=== PATIENT | female | born 1990 | race Caucasian/White ===

== ENCOUNTER → 2020-09-16 | Outpatient (CLI) | payer MEDICAID ==
[~2020-09-16] MED LIST: ATARAX OR; BACTROBAN TOP; MACR50CA OR; REME30TA OR; TRAZ50TA OR; ZOLO50TA OR
--- NOTE | 2020-09-16 11:57 | REP ---
INDICATION: DORSALGIA, UNSPECIFIED COMPARISON: None. TECHNIQUE: AP, lateral, and swimmers views. FINDINGS: Alignment and kyphosis is maintained. Vertebral bodies intact. No acute fracture / compression injury or subluxation. No degenerative changes. Paravertebral soft tissues are normal. IMPRESSION: Normal thoracic spine series. <Electronically signed by Jose Tamayo > 09/16/20 [id number]
--- NOTE | 2020-09-16 11:58 | REP ---
INDICATION: DORSALGIA, UNSPECIFIED COMPARISON: None. TECHNIQUE: AP and lateral views of the lumbosacral spine FINDINGS: Two orthogonal views of the lumbosacral spine demonstrate satisfactory alignment and lordosis without acute fracture / compression injury or subluxation. IMPRESSION: 1. No acute fracture / compression injury or subluxation. <Electronically signed by Jose Tamayo > 09/16/20 [id number]
== END ==
LOC: M LAB 11:01
PROVIDERS: ATTEND Family Medicine Addiction Medicine
DX: M54.9 Dorsalgia, unspecified (principal)

== ENCOUNTER 2020-10-15 14:39 | Emergency (ER) | payer MEDICAID, OTHER ==
[~2020-10-15] VITALS: Ht 157.5 cm; Wt 107.0 kg
[2020-10-15 14:40] VITALS: BP 144/88
[2020-10-15] MEDS ORDERED: PROP20TA72 (14:57)
== END 2020-10-15 16:10 | disposition left against medical advice (07) ==
LOC: M ED 14:39
DX: Z53.21 Procedure and treatment not carried out due to patient leaving prior to being seen by health care provider (principal)

== ENCOUNTER 2021-02-05 12:45 | Emergency (ER) | payer OTHER ==
[~2021-02-05] VITALS: Ht 154.9 cm; Wt 108.2 kg
[~2021-02-05 12:45] MED LIST changes: +PROP20TA72
[2021-02-05] MEDS ORDERED: NS 1,000 ML IV SCH (13:40)
[2021-02-05 14:06] LABS: BASO # 0.1 10^3/uL (0.0-0.2); BASO % 0.6 % (0.0-1.0); EOS # 0.1 10^3/uL (0.0-0.5); EOS % 0.6 % (0.0-3.0); HEMATOCRIT 40.6 % (36.0-47.0); HEMOGLOBIN 13.2 g/dl (12.0-15.5); LYMPH % 29.4 % (24.0-44.0); MEAN CORPUSCULAR HEMOGLOBIN 26.7 pg (27.0-33.0); MEAN CORPUSCULAR HGB CONC 32.5 g/dl (32.0-36.5); MEAN CORPUSCULAR VOLUME 82.2 fl (80.0-96.0); MONO # 0.8 10^3/uL (0.0-0.8); MONO % 8.1 % (2.0-8.0); NEUTROPHILS # 6.2 10^3/uL (1.5-8.5); NEUTROPHILS % 60.8 % (36.0-66.0); PLATELET COUNT, AUTOMATED 297 10^3/uL (150-450); RED BLOOD COUNT 4.94 10^6/uL (4.00-5.40); WHITE BLOOD COUNT 10.2 10^3/uL (4.0-10.0)
[2021-02-05] MEDS ORDERED: LISI10TA22 PO (14:10)
[2021-02-05] MEDS ORDERED: AMOX500C PO (14:10)
[2021-02-05] MEDS ORDERED: LEXA1TAB PO (14:10)
[2021-02-05 14:37] LABS: ALBUMIN 3.5 GM/DL (3.2-5.2); ALT/SGPT 15 U/L (12-78); BILIRUBIN,DIRECT < 0.1 MG/DL (0.0-0.2); BILIRUBIN,TOTAL 0.2 MG/DL (0.2-1.0); BLOOD UREA NITROGEN 16 MG/DL (7-18); CALCIUM LEVEL 8.9 MG/DL (8.5-10.1); CARBON DIOXIDE LEVEL 23 MEQ/L (21-32); CHLORIDE LEVEL 106 MEQ/L (98-107); CK-MB VALUE MASS < 1.0 NG/ML (<3.6); CPK CREATINE PHOSPHOKINASE 67 U/L (26-192); FREE T4 0.77 NG/DL (0.76-1.46); GLOMERULAR FILTRATION RATE > 60.0 (>60); GLUCOSE, FASTING 112 MG/DL (70-100); LIPASE 92 U/L (73-393); MAGNESIUM LEVEL 1.8 MG/DL (1.8-2.4); MB/CK RELATIVE INDEX 1.49 (< OR =4); POTASSIUM SERUM 4.1 MEQ/L (3.5-5.1); SODIUM LEVEL 138 MEQ/L (136-145); TOTAL PROTEIN 6.8 GM/DL (6.4-8.2); TROPONIN I < 0.02 NG/ML (< 0.10)
[2021-02-05 14:49] LABS: HCG, SERUM QUALITATIVE NEGATIVE (NEGATIVE)
[2021-02-05] MEDS ORDERED: ISOVUE-370 76% 100ML VIAL As Ordered ONE (15:05)
--- NOTE | 2021-02-05 16:07 | REP ---
INDICATION: sob, syncope. COMPARISON: None. TECHNIQUE: CT angiogram chest performed following the intravenous administration of 100 cc of Isovue 370. Sagittal and coronal reconstruction images are performed. FINDINGS: Lungs: Clear, no infiltrate or nodule. Mediastinum: No adenopathy. Pulmonary arteries: No evidence of pulmonary embolism. Aretha: No adenopathy. Axilla: No adenopathy. Pleura: No effusion. Heart: Not enlarged. Thoracic aorta: No aneurysm or dissection. Upper abdominal structures: Unremarkable. Visualized osseous structures: Unremarkable. IMPRESSION: No CT evidence of pulmonary embolism. No infiltrate seen. <Electronically signed by Dung Soria > 02/05/21 [id number]
--- NOTE | 2021-02-05 16:12 | REP ---
INDICATION: LUQ pain, syncope COMPARISON: None. TECHNIQUE: CT Scan of the abdomen and pelvis was performed with intravenous administration of 100 cc of Isovue 370, without oral contrast. Sagittal and coronal reconstruction images are performed. FINDINGS: Lung bases: Unremarkable. Liver: Normal Gallbladder: Unremarkable. Spleen: Normal. Adrenals: Normal. Pancreas: Normal. Kidneys: Normal. Small and large bowel: Unremarkable. Free fluid: Trace free fluid in the pelvis is likely physiologic in nature. Abdominal aorta: No aneurysm or dissection. Adenopathy: None. Appendix: Not inflamed. Osseous structures: Unremarkable. Pelvis: No mass. IMPRESSION: Negative CT abdomen and pelvis. <Electronically signed by Dung Soria > 02/05/21 [id number]
[2021-02-05 16:45] VITALS: BP 144/85
--- NOTE | 2021-02-06 19:56 | ECGEPIP ---
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
== END 2021-02-05 17:06 | disposition home or self-care (01) ==
LOC: M ED 12:45
DX: R55 Syncope and collapse (principal); R19.7 Diarrhea, unspecified; I10 Essential (primary) hypertension; F31.9 Bipolar disorder, unspecified; Z79.899 Other long term (current) drug therapy; Z88.8 Allergy status to other drugs, medicaments and biological substances
CPT/HCPCS: 71275; 74177; 80048; 80076; 82550; 82553; 83690; 83735; 84439; 84443; 84703; 85025; 93005; 93041; 94760; 96360; 96361; 99285; Q9967; U0003

== ENCOUNTER 2021-03-15 22:07 | Emergency (ER) | payer OTHER ==
[~2021-03-15] VITALS: Ht 154.9 cm; Wt 109.6 kg
[~2021-03-15 22:07] MED LIST changes: +AMOX500C PO; +LEXA1TAB PO; +LISI10TA22 PO
--- OUTSIDE RECORDS SUMMARY | 2021-03-15 22:16 | CCD ---
Author Organization Unknown Address [address] [place] [address] Phone [phone] Care Team Providers [employer] Operator Name Role Phone Dustin Garcia Unavailable Unavailable Allergies Code Code System Name Reaction Severity Status Onset NKDA Medications Name Status Start Date Stop Date escitalopram 10 mg tablet Take 1 tablet every day by oral route. Active Not available hydroxyzine HCl 10 mg tablet TAKE ONE TABLET BY MOUTH THREE TIMES A DAY NEEDED Active Not available ibuprofen 400 mg tablet TAKE ONE TABLET BY MOUTH THREE TIMES A DAY Completed 12/15/2020 lisinopril 10 mg tablet TAKE ONE TABLET BY MOUTH EVERY EVENING Active Not available propranolol 20 mg tablet TAKE ONE HALF TABLET BY MOUTH TWO TIMES A DAY Completed 12/31/2020 Problems Name Status Onset Date Source Essential Hypertension Active 09/15/2020 Chronic Back Pain Active 09/15/2020 Atypical Chest Pain Active 09/16/2020 Morbid Obesity Active 12/31/2020 Generalized Anxiety Disorder Active 12/31/2020 Notes: wants to talk about weight gain, anxiety attacks, and BP meds Procedures Date Name Performed by 09/15/2020 XR, Thoracic Spine, 3 View Information n ot available 09/15/2020 XR, Lumbosacral Spine, 2 or 3 View Infor mation not available 09/16/2020 Electrocardiogram [facility] [address] [facility] [address] [place] [address] (Work Place) Results Lab Results Date Name Specimen Result Interpretation Description Value Range Status Address 09/15/2020 Test, Urine Urine Hcg negative [facility]: [address] [facility] [address], [place] 08/18/2020 SARS CoV 2 RdRp Gene, QL Probe, Respiratory Spec imen Nasopharyngeal Normal Sars-cov-2 negative negative Final [facility]: [address] [facility] Past Encounters 12/15/2020 Essential Hypertension; Generalized Anxiety Disorder; Chronic Back Pain; Morbid Obesity Noel Kruse, RPA-C: [address] [facility] [address], [place] [address], Ph. 09/15/2020 Chronic Back Pain; Essential Hypertension; Atypical Chest Pain Dustin Garcia MD: [address] [facility], [facility] [address], [place] [address], Ph. 08/18/2020 Exposure to SARS-CoV-2 Jaimie Hermosillo PA-C: [address] [place] [address], Ph. Social History Tobacco Smoking Status Heavy Tobacco Smoker (1/2 pack per a day) Vaccine List None recorded. Plan of Care Reminders Provider Appointments None recorded. Lab None recorded. Referral None recorded. Procedures None recorded. Surgeries None recorded. Imaging None recorded. Vitals 12/15/2020 12:00PM ESTABLISHED [id number] Height Weight BMI Blood Pressure 62 in 239 lbs 8 oz 43.8 kg/m2 128/86 mm[Hg] 09/15/2020 02:20PM NEW PATIENT (13yrs - OLDER) Height Weight BMI Blood Pressure 62 in 225 lbs 6 oz 41.2 kg/m2 120/84 mm[Hg]
--- OUTSIDE RECORDS SUMMARY | 2021-03-15 22:16 | CCD ---
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 Role Phone Maring, Capo PA Unavailable Unavailable Maring, Capo PA Unavailable Unavailable Maring, Capo PA Unavailable Unavailable Maring, Capo PA Unavailable Unavailable Maring, Capo PA Unavailable Unavailable Maring, Capo PA Unavailable Unavailable Maring, Capo PA Unavailable Unavailable Maring, Capo PA Unavailable Unavailable Maring, Capo PA Unavailable Unavailable Maring, Capo PA Unavailable Unavailable Maring, Capo PA Unavailable Unavailable Maring, Capo PA Unavailable Unavailable Maring, Capo PA Unavailable Unavailable Maring, Capo PA Unavailable Unavailable Maring, Capo PA Unavailable Unavailable Maring, Capo PA Unavailable Unavailable Elías Garcia MD Unavailable Unavailable Elías Garcia MD Unavailable Unavailable Elías Garcia MD Unavailable Unavailable Elías Garcia MD Unavailable Unavailable Elías Garcia MD Unavailable Unavailable Elías Garcia MD Unavailable Unavailable Elías Garcia MD Unavailable Unavailable Elías Garcia MD Unavailable Unavailable Elías Garcia MD Unavailable Unavailable Elías Garcia MD Unavailable Unavailable Elías Garcia MD Unavailable Unavailable Elías Garcia MD Unavailable Unavailable Elías Garcia MD Unavailable Unavailable Elías Garcia MD Unavailable Unavailable Elías Garcia MD Unavailable Unavailable Elías Garcia MD Unavailable Unavailable Elías Garcia MD Unavailable Unavailable Elías Garcia MD Unavailable Unavailable Elías Garcia MD Unavailable Unavailable Elías Garcia MD Unavailable Unavailable Elías Garcia MD Unavailable Unavailable Elías Garcia MD Unavailable Unavailable Elías Garcia MD Unavailable Unavailable Elías Garcia MD Unavailable Unavailable Elías Garcia MD Unavailable Unavailable Elías Garcia MD Unavailable Unavailable Elías Garcia MD Unavailable Unavailable Elías Garcia MD Unavailable Unavailable Elías Garcia MD Unavailable Unavailable Elías Garcia MD Unavailable Unavailable Elías Garcia MD Unavailable Unavailable Elías Garcia MD Unavailable Unavailable Elías Garcia MD Unavailable Unavailable Elías Garcia MD Unavailable Unavailable Elías Garcia MD Unavailable Unavailable Elías Garcia MD Unavailable Unavailable Elías Garcia MD Unavailable Unavailable GarciaElías MD Unavailable Unavailable Elías Garcia MD Unavailable Unavailable Elías Garcia MD Unavailable Unavailable Elías Garcia MD Unavailable Unavailable Elías Garcia MD Unavailable Unavailable Elías Garcia MD Unavailable Unavailable Elías Garcia MD Unavailable Unavailable Elías Gracia MD Unavailable Unavailable Elías Garcia MD Unavailable Unavailable GarciaElías MD Unavailable Unavailable GarciaElías MD Unavailable Unavailable GarciaElías MD Unavailable Unavailable Elías Garcia MD Unavailable Unavailable Elías Garcia MD Unavailable Unavailable Elías Garcia MD Unavailable Unavailable Elías Garcia MD Unavailable Unavailable GarciaElías MD Unavailable Unavailable Elías Garcia MD Unavailable Unavailable Elías Garcia MD Unavailable Unavailable Elías Garcia MD Unavailable Unavailable Elías Garcia MD Unavailable Unavailable Elías Garcia MD Unavailable Unavailable Elías Garcia MD Unavailable Unavailable Elías Garcia MD Unavailable Unavailable Elías Garcia MD Unavailable Unavailable Elías Garcia MD Unavailable Unavailable Elías Garcia MD Unavailable Unavailable Elías Garcia MD Unavailable Unavailable Elías Garcia MD Unavailable Unavailable Elías Garcia MD Unavailable Unavailable Elías Garcia MD Unavailable Unavailable Elías Garcia MD Unavailable Unavailable Elías Garcia MD Unavailable Unavailable Elías Garcia MD Unavailable Unavailable Elías Garcia MD Unavailable Unavailable Elías Garcia MD Unavailable Unavailable Elías Garcia MD Unavailable Unavailable Elías Garcia MD Unavailable Unavailable Elías Garcia MD Unavailable Unavailable Elías Garcia MD Unavailable Unavailable Elías Garcia MD Unavailable Unavailable Elías Garcia MD Unavailable Unavailable Elías Garcia MD Unavailable Unavailable Elías Garcia MD Unavailable Unavailable Elías Garcia MD Unavailable Unavailable Elías Garcia MD Unavailable Unavailable Elías Garcia MD Unavailable Unavailable Elías Garcia MD Unavailable Unavailable Elías Garcia MD Unavailable Unavailable Elías Garcia MD Unavailable Unavailable Elías Garcia MD Unavailable Unavailable Elías Garcia MD Unavailable Unavailable Elías Garcia MD Unavailable Unavailable Elías Garcia MD Unavailable Unavailable Elías Garcia MD Unavailable Unavailable Elías Garcia MD Unavailable Unavailable KRUSE, RAMY NOEL RPA-C Unavailable Unavailable KRUSE, RAMY NOEL RPA-C Unavailable Unavailable KRUSE, RAMY NOEL RPA-C Unavailable Unavailable KRUSE, RAMY NOEL RPA-C Unavailable Unavailable KRUSE, RAMY NOEL RPA-C Unavailable Unavailable KRUSE, RAMY NOEL RPA-C Unavailable Unavailable KRUSE, RAMY NOEL RPA-C Unavailable Unavailable KRUSE, RAMY NOEL RPA-C Unavailable Unavailable KRUSE, RAMY NOEL RPA-C Unavailable Unavailable KRUSE, RAMY NOEL RPA-C Unavailable Unavailable KRUSE, RAMY NOEL RPA-C Unavailable Unavailable KRUSE, RAMY NOEL RPA-C Unavailable Unavailable KRUSE, RAMY NOEL RPA-C Unavailable Unavailable KRUSE, RAMY NOEL RPA-C Unavailable Unavailable KRUSE, RAMY NOEL RPA-C Unavailable Unavailable KRUSE, RAMY NOEL RPA-C Unavailable Unavailable KRUSE, RAMY NOEL RPA-C Unavailable Unavailable KRUSE, RAMY NOEL RPA-C Unavailable Unavailable KRUSE, RAMY NOEL RPA-C Unavailable Unavailable KRUSE, RAMY NOEL RPA-C Unavailable Unavailable KRUSE, RAMY NOEL RPA-C Unavailable Unavailable KRUSE, RAMY NOEL RPA-C Unavailable Unavailable KRUSE, RAMY NOEL RPA-C Unavailable Unavailable KRUSE, RAMY NOEL RPA-C Unavailable Unavailable KRUSE, RAMY NOEL RPA-C Unavailable Unavailable KRUSE, RAMY NOEL RPA-C Unavailable Unavailable KRUSE, RAMY NOEL RPA-C Unavailable Unavailable KRUSE, RAMY NOEL RPA-C Unavailable Unavailable KRUSE, RAMY NOEL RPA-C Unavailable Unavailable KRUSE, RAMY NOEL RPA-C Unavailable Unavailable KRUSE, RAMY NOEL RPA-C Unavailable Unavailable KRUSE, RAMY NOEL RPA-C Unavailable Unavailable KRUSE, RAMY NOEL RPA-C Unavailable Unavailable KRUSE, RAMY NOEL RPA-C Unavailable Unavailable KRUSE, RAMY NOEL RPA-C Unavailable Unavailable KRUSE, RAMY NOEL RPA-C Unavailable Unavailable KRUSE, RAMY NOEL RPA-C Unavailable Unavailable KRUSE, RAMY NOEL RPA-C Unavailable Unavailable KRUSE, RAMY NOEL RPA-C Unavailable Unavailable KRUSE, RAMY NOEL RPA-C Unavailable Unavailable KRUSE, RAMY NOEL RPA-C Unavailable Unavailable KRUSE, RAMY NOEL RPA-C Unavailable Unavailable KRUSE, RAMY NOEL RPA-C Unavailable Unavailable Cholo HIGUERA MD Unavailable Unavailable Cholo HIGUERA MD Unavailable Unavailable Cholo HIGUERA MD Unavailable Unavailable Cholo HIGUERA MD Unavailable Unavailable Cholo HIGUERA MD Unavailable Unavailable Cholo HIGUERA MD Unavailable Unavailable Cholo HIGUERA MD Unavailable Unavailable Cholo HIGUERA MD Unavailable Unavailable Cholo HIGUERA MD Unavailable Unavailable Cholo HIGUERA MD Unavailable Unavailable Cholo HIGUERA MD Unavailable Unavailable Cholo HIGUERA MD Unavailable Unavailable Cholo HIGUERA MD Unavailable Unavailable Cholo HIGUERA MD Unavailable Unavailable Cholo HIGUERA MD Unavailable Unavailable Cholo HIGUERA MD Unavailable Unavailable Cholo HIGUERA MD Unavailable Unavailable Cholo HIGUERA MD Unavailable Unavailable Cholo HIGUERA MD Unavailable Unavailable Cholo HIGUERA MD Unavailable Unavailable Cholo HIGUERA MD Unavailable Unavailable Cholo HIGUERA MD Unavailable Unavailable Cholo HIGUERA MD Unavailable Unavailable Cholo HIGUERA MD Unavailable Unavailable Hal Moore MD Unavailable Unavailable Hal Moore MD Unavailable Unavailable Hal Moore MD Unavailable Unavailable Hal Moore MD Unavailable Unavailable Hal Moore MD Unavailable Unavailable Hal Moore MD Unavailable Unavailable Scordo, M Jaimie PA Unavailable Unavailable Scordo, M Jaimie PA Unavailable Unavailable Scordo, M Jaimie PA Unavailable Unavailable Scordo, M Jaimie PA Unavailable Unavailable Scordo, M Jaimie PA Unavailable Unavailable Scordo, M Jaimie PA Unavailable Unavailable Scordo, M Jaimie PA Unavailable Unavailable Scordo, M Jaimie PA Unavailable Unavailable Scordo, M Jaimie PA Unavailable Unavailable Scordo, M Jaimie PA Unavailable Unavailable Scordo, M Jaimie PA Unavailable Unavailable Scordo, M Jaimie PA Unavailable Unavailable Scordo, M Jaimie PA Unavailable Unavailable Scordo, M Jaimie PA Unavailable Unavailable Scordo, M Jaimie PA Unavailable Unavailable Scordo, M Jaimie PA Unavailable Unavailable Scordo, M Jaimie PA Unavailable Unavailable Scordo, M Jaimie PA Unavailable Unavailable Scordo, M Jaimie PA Unavailable Unavailable Scordo, M Jaimie PA Unavailable Unavailable Scordo, M Jaimie PA Unavailable Unavailable Scordo, M Jaimie PA Unavailable Unavailable Scordo, M Jaimie PA Unavailable Unavailable Scordo, M Jaimie PA Unavailable Unavailable Scordo, M Jaimie PA Unavailable Unavailable Scordo, M Jaimie PA Unavailable Unavailable Scordo, M Jaimie PA Unavailable Unavailable Scordo, M Jaimie PA Unavailable Unavailable Scordo, M Jaimie PA Unavailable Unavailable Scordo, M Jaimie PA Unavailable Unavailable Scordo, M Jaimie PA Unavailable Unavailable Scordo, M Jaimie PA Unavailable Unavailable Scordo, M Jaimie PA Unavailable Unavailable Scordo, M Jaimie PA Unavailable Unavailable Scordo, M Jaimie PA Unavailable Unavailable Scordo, M Jaimie PA Unavailable Unavailable Scordo, M Jaimie PA Unavailable Unavailable Scordo, M Jaimie PA Unavailable Unavailable Scordo, M Jaimie PA Unavailable Unavailable Scordo, M Jaimie PA Unavailable Unavailable Scordo, M Jaimie PA Unavailable Unavailable Scordo, M Jaimie PA Unavailable Unavailable Scordo, M Jaimie PA Unavailable Unavailable Scordo, M Jaimie PA Unavailable Unavailable Scordo, M Jaimie PA Unavailable Unavailable Scordo, M Jaimie PA Unavailable Unavailable Scordo, M Jaimie PA Unavailable Unavailable NON, PHYSICIAN STAFF Unavailable Unavailable Re-disclosure Warning The records that you are about to access may contain information from federally-assisted alcohol or drug abuse programs. If such information is present, then the following federally mandated warning applies: This information has been disclosed to you from records protected by federal confidentiality rules (42 CFR part 2). The federal rules prohibit you from making any further disclosure of this information unless further disclosure is expressly permitted by the written consent of the person to whom it pertains or as otherwise permitted by 42 CFR part 2. A general authorization for the release of medical or other information is NOT sufficient for this purpose. The Federal rules restrict any use of the information to criminally investigate or prosecute any alcohol or drug abuse patient.The records that you are about to access may contain highly sensitive health information, the redisclosure of which is protected by Article 27-F of the [facility] Public Health law. If you continue you may have access to information: Regarding HIV / AIDS; Provided by facilities licensed or operated by the [facility] Office of Mental Health; or Provided by the [facility] Office for People With Developmental Disabilities. If such information is present, then the following [facility] mandated warning applies: This information has been disclosed to you from confidential records which are protected by state law. State law prohibits you from making any further disclosure of this information without the specific written consent of the person to whom it pertains, or as otherwise permitted by law. Any unauthorized further disclosure in violation of state law may result in a fine or penitentiary sentence or both. A general authorization for the release of medical or other information is NOT sufficient authorization for further disc losure. Allergies and Adverse Reactions Type Description Substance Reaction Status Data Source(s ) Allergy to substance Allergy to substance Allergy to substance [facility] ([facility]) Encounters Encounter Providers Location Date Indications Data Source(s ) Outpatient Attender: AISHWARYA HIGUERA MD 12/24 08:27:35 AM EDT - 12/24/2020 10:01:20 AM EDT [facility] ([facility] ) Neol Kruse RPA-C: [address], [place] [address], Ph. Attender: NOEL KRUSE RPA-C [facility] Medical 12/15/2020 12:00:00 AM EDT [facility] ([facility]) Emergency Attender: Hal Moore MDConsultant: STAFF NON 10/15/2020 04:28:00 PM EDT - 10/15/2020 07:18:00 PM EDT [facility] Patient discharged. Outpatient Attender: Capo COMBS 09/20/19 02:00:54 PM EDT - 09/19/2020 02:23:47 PM EDT [facility] ([facility] ) Dustin Garcia MD: [address], [address], [place] [address], Ph. Attender: Dustin Garcia MD [facility] Medical 09/15/2020 12:00:00 AM EDT [facility] ([facility]) Dustin Garcia MD: [address], [place] [address], Ph. Attender: Dustin Garcia MD [facility] Medical 09/15/2020 12:00:00 AM EDT [facility] ([facility]) Outpatient Attender: Capo COMBS 09/15/19 10:00:24 AM EDT - 09/14/2020 10:42:07 AM EDT [facility] ([facility] ) Outpatient Attender: Capo COMBS 08/23/19 09:46:55 AM EDT - 08/22/2020 10:19:01 AM EDT [facility] ([facility] ) Jaimie Hermosillo PA-C: [address], [facility] [address], Ph. Attender: Jaimie COMBS [place] [facility] 08/18/2020 12:00:00 AM EDT [facility]) Jaimie Hermosillo PA-C: [address], [facility] [place] [address], Ph. Attender: Jaimie COMBS [place] [facility] 08/18/2020 12:00:00 AM EDT [facility]) Jaimie Hermosillo PA-C: [address], [place] [address], Ph. Attender: Jaimie COMBS [place] [facility] 08/18/2020 12:00:00 AM EDT [facility] ([facility]) Medications Medication Brand Name Start Date Product Form Dose Route Admi nistrative Instructions Pharmacy Instructions Status Indications Reaction Description Data Source(s) 20 mg 2020 12:00:00 AM EDT tablet 30 TAKE ONE HALF TABLET BY MOUTH TWO TIMES A DAY TAKE ONE HALF TABLET BY MOUTH TWO TIMES A DAY SOLD: 2020 [facility] 20 mg 10/18/2020 12:00:00 AM EDT tablet 30 TAKE 1/2 TABLET BY MOUTH TWO TIMES A DAY TAKE 1/2 TABLET BY MOUTH TWO TIMES A DAY SOLD: 10/18/2020 [facility] 400 mg 10/15/2020 12:00:00 AM EDT tablet 45 TAKE ONE TABLET BY MOUTH THREE TIMES A DAY TAKE ONE TABLET BY MOUTH THREE TIMES A DAY SOLD: 10/18/2020 [facility] 20 mg 09/15/2020 12:00:00 AM EDT tablet 30 TAKE 1/2 TABLET BY MOUTH TWO TIMES A DAY TAKE 1/2 TABLET BY MOUTH TWO TIMES A DAY SOLD: 09/16/2020 [facility] Propranolol Hydrochloride 20 MG Oral Tab let propranolol 20 mg tablet TAKE ONE HALF TABLET BY MOUTH TWO TIMES A DAY propranolol 20 mg tablet TAKE ONE HALF TABLET BY MOUTH TWO TIMES A DAY comple kerrie propranolol hydrochloride 20 MG Oral Tablet [facility]) Ibuprofen 400 MG Oral Tablet ibuprofen 4 00 mg tablet TAKE ONE TABLET BY MOUTH THREE TIMES A DAY ibuprofen 400 mg tablet TAKE ONE TABLET BY MOUTH THREE TIMES A DAY completed ibuprofen 400 MG Oral Tablet [facility] ([facility]) Insurance Providers Payer name Policy type / Coverage type Policy ID Covered libertarian ID Covered libertarian's relationship to medrano Policy Medrano Plan Information Medicaid Medicaid [id number] Self [id number] Medicaid Medicaid [id number] Self [id number] [employer] [id number] Self [id number] [facility] MEDICAID [id number] SP [id number] D [facility] [place]ARE [place] - [id number] [facility] [id number] SP [id number] [facility] [id number] SP [id number] Problems, Conditions, and Diagnoses Code Display Name Description Problem Type Effective Dates Data Source(s) T56801 Nicotine dependence, cigarettes, uncompl icated Nicotine dependence, cigarettes, uncomplicated Diagnosis 10/15/2020 04:28:00 PM EDT [facility] I10 Essential (primary) hypertension Essential (primary) h ypertension Diagnosis 10/15/2020 04:28:00 PM EDT [facility] N921 Excessive and frequent menstruation with irregular cycle Excessive and frequent menstruation with irregular cycle Diagnosis 10/15/2020 04:28: 00 PM EDT [facility] N939 Abnormal uterine and vaginal bleeding, u nspecified Abnormal uterine and vaginal bleeding, unspecified Diagnosis 10/15/2020 04:28:00 PM EDT [facility] [id number] Generalized anxiety disorder Generalized Anxiety Disor sintia Problem 12/31/2020 12:00:00 AM EDT [facility] [id number] Morbid obesity Morbid Obesity Problem 12/31/2020 12:00: 00 AM EDT [facility] ([facility]) [id number] Atypical chest pain Atypical Chest Pain Problem 0 09/16/2020 12:00:00 AM EDT [facility] ([facility]) [id number] Atypical chest pain Atypical Chest Pain Problem 0 09/16/2020 12:00:00 AM EDT [facility] ([facility]) [id number] Chronic back pain Chronic Back Pain Problem 09/15 12:00:00 AM EDT [facility] ([facility]) [id number] Essential hypertension Essential Hypertension Problem 09/15/2020 12:00:00 AM EDT [facility] ([facility]) 456156937 Chronic back pain Chronic Back Pain Problem 09/15 12:00:00 AM EDT [facility] ([facility]) 09010172 Essential hypertension Essential Hypertension Problem 09/15/2020 12:00:00 AM EDT [facility] ([facility]) Surgeries/Procedures Procedure Description Date Indications Data Source(s) XR, lumbosacral spine, 2 or 3 view 09/15/2020 12:00:00 AM EDT [facility] ([facility]) XR, thoracic spine, 3 view 09/15/2020 12:00:00 AM EDT [facility] ([facility]) XR, lumbosacral spine, 2 or 3 view 09/15/2020 12:00:00 AM EDT [facility] ([facility]) XR, thoracic spine, 3 view 09/15/2020 12:00:00 AM EDT [facility] ([facility]) Results ID Date Data Source [id number] 02/05/2021 01:09:00 PM EDT [facility] Name Value Range Interpretation Code Description Data Mary rce(s) Supporting Document(s) SARS COVID ANTIGEN NEGATIVE [facility] This lab was ordered by OTTO rios nd reported by [facility]. ID Date Data Source [id number] 12/24/2020 08:45:00 AM EDT [facility] Name Value Range Interpretation Code Description Data Mary rce(s) Supporting Document(s) SARS-CoV-2 RNA Resp Ql KIA+probe NOT DETECTED [facility] This lab was ordered by SHELLI cruz and reported by SHELLI Flores. ID Date Data Source [id number] 10/18/2020 10:01:00 AM EDT [facility] [address] [place] [address] PHONE: [phone] FAX: [phone] Name .................. : ZACHARY Maguire Acct Number.................. : [id number] ROOM. ................. : VT-04 MR Number ................... : [id number] Stay type ............. : E/R Discharge Date......... ... : 10/15/20 Admit Date .... ..... : 10/15/20 Admit Phys .................... : HEMANTH Emmanuel Date of ....... : 1990 Family Phys ................... : NON STAFF Phone .................. : [phone] Age ................................ : 29 Film# .................. .:[id number] Sex ................................. : F Unsigned transcriptions are preliminary reports and do not represent a medical or legal document CT ABD & PELV W/O ORAL W/O IV [id number] COMPLETE:10/15/20 18:17 [id number] [id number] Reason(s): Abdominal Pain CT OF THE ABDOMEN AND PELVIS WITHOUT CONTRAST: INDICATION: Abdominal pain. FINDINGS: The lung bases are clear. There is normal noncontrast CT appearance of the liver, spleen, pancreas, adrenal glands and kidneys. No gallbladder wall thickening or biliary duct dilatation. The visualized bowel is normal in caliber. The appendix is normal. No bowel wall thickening. The bladder and pelv ic organs appear normal. No acute osseous abnormality. No lymphadenopathy. IMPRESSION: No acute intra-abdominal process. While performing the above CT examination, radiation dose reduction was accomplished utilizing automated exposure control, adjusting of the mA and kV based on the patient's body size and/or the use of imperative reconstructive techniques. CT dose: 1652.1 mGycm Electronically Reviewed and Signed By Tristian Mayer M.D. , 10/18/20 10:01, [facility] [address] [place] [address] PHONE: [phone] FAX: [phone] Name .................. : ZACHARY Maguire Acct Number.................. : [id number] ROOM. ................. : VT-04 Number ................... : [id number] Stay type ............. : E/R Discharge Date......... ... : 10/15/20 Admit Date ......... : 10/15/20 Admit Phys .................... : HEMANTH Emmanuel Date of ....... : 1990 Family Phys ................... : NON STAFF Phone .................. : [phone] Age ................................ : 29 Film# .................. .:[id number] Sex ................................. : F Unsign ed transcriptions are preliminary reports and do not represent a medical or legal document CT ABD & PELV W/O ORAL W/O IV [id number] COMPLETE:10/15/20 18:17 [id number] [id number] Reason(s): Abdominal Pain Transcribe Initials: DZ , Transcribe Date: 10/16/20 02:55, Dictation Date: Copy for: [facility] via fax Copy for: EMERGENCY DEPT via modem Copy for: 710 MED REC DISCHARGED Page 2 of 2 Name Value Range Interpretation Code Description Data Mary rce(s) Supporting Document(s) ID Date Data Source [id number] 10/18/2020 10:00:00 [place] [address] PHONE: [phone] FAX: [phone] Name .................. : ZACHARY SCOTT Maguire Acct Number.................. : [id number] ROOM. ................. : VT-04 Number ................... : [id number] Stay type ............. : E/R Discharge Date......... ... : 10/15/20 Admit Date .... ..... : 10/15/20 Admit Phys .................... : HEMANTH Emmanuel Date of ....... : 1990 Family Phys ................... : NON STAFF Phone .................. : [phone] Age ................................ : 29 Film# .................. .:[id number] Sex ................................. : F Unsigned transcriptions are preliminary reports and do not represent a medical or legal document TRANSVAGINAL(NON OB) [id number] COMPLETE:10/16/20 01:43 ADB [id number] Reason for Exam: ABNORMAL VAGINAL BLEEDING TRANSVAGINAL PELVIC ULTRASOUND: INDICATION: Abnormal vaginal bleeding. FINDINGS: This examination is limited due to patient body habitus and non- filling of the bladder. The uterus measures at least 8.7 x 5.7 cm. It is difficult to fully image the uterus on this examination. The endometrium is estimated at 1.5 cm in thickness, but this is marked limited in evaluation. A small amount of fluid is noted in the cervix. The right ovary is sonographically normal. The left ovary is not visualized. IMPRESSION: Extremely limited evaluation. There is a small amount of fluid in the cervix. The endometrium approximately measures 1.5 cm in thickness. Electronically Reviewed and Signed By Tristian Mayer M.D. , 10/18/20 10:01, [facility] Transcribe Initials: MARIO , Transcribe Date: 10/16/20 02:48, Dictation Date: Copy for: EMERGENCY DEPT via mode Copy for: 710 MED REC DISCHARGED Page 1 of 1 Name Value Range Interpretation Code Description Data Mary rce(s) Supporting Document(s) ID Date Data Source [id number] 10/15/2020 04:28:00 PM EDT [facility] 1 OrderSheet [facility] Emergency Department [address] [place] [address] Phone #: [phone] 10/15/2020 16:24 Patient: SCOTT SHARMA Sex: F : 1990 Age: 29yWEIGHT:105.6 kg (S) HEIGHT:62 inches (S) BMI:42.6ALLERGIES: cough syrup (unsure)CHIEF COMPLAINT: vag bleeding, abd pain, abnml bleeding, low back painDIAGNOSIS: Dysfunctional uterine bleedingLAB ORDERSOrder Description Priority Entered Acknowledged InitialedUrinalysis (Clean STAT 16:43 10/15/2020 16:43 Etta Leon Julie R.N.; R.N. Verbal order per; Christiano Brock PACBC w Diff STAT 16:54 10/15/2020 17:05 Conchita Leon R.N.;CMP STAT 16:54 10/15/2020 17:05 Conchita Leon R.N.;Lactic Acid STAT 16:54 10/15/2020 17:05 Conchita Leon R.N.;Lipase STAT 16:54 10/15/2020 17:05 Conchita Leon R.N.;Beta-HCG, Qual STAT 16:54 10/15/2020 16:55 Paul Leon R.N.;DIAGNOSTIC STUDY ORDERSOrder Description Priority Entered Acknowledged InitialedUS Pelvis STAT 16:58 10/15/2020 17:24 Ifeanyi,(Oxygen?(No)) Christiano COMBS; Reason for Study: Abnormal BleedingCT ABD PEL W/O STAT 16:58 10/15/2020 17:24 Ifeanyi,Oral W/O IV Christiano Delgado PA;(Oxygen?(No)) 2 OrderSheet [facility] Emergency Department [address] [place] [address] Phone #: ext- [phone] 10/15/2020 16:24 Patient: SCOTT SHARMA Sex: F : 1990 Age: 29y(IV?(Yes)) NOTES: LLQ pain and Left Flank Pain Reason for Study: Abdominal PainMEDICATION/IV/DRIP/FLUID ORDERSOrder Description Priority Entered Acknowledged InitialedNS IV 1000 mL 16:54 10/15/2020 17:05 Conchita LeonBolus: : Bolus 1000 Christiano Brock R.N.mL (X1) PA;Ofirmev IV 1000 mg 16:54 10/15/2020 17:06 Conchita Leon(NOW x1, Infuse Christiano Brock R.N.over 15 minutes) PA;GENERAL ORDERSOrder Description Priority Entered Acknowledged Initialed[Electronically signed by Shaun Ríos (19:18 10/15/2020)][Electronically signed by Christiano Brock (21:33 10/16/19)][Electronically locked by Shaun Ríos (19:18 10/15/2020)] Name Value Range Interpretation Code Description Data Mary rce(s) Supporting Document(s) ID Date Data Source [id number] 10/15/2020 04:28:00 PM EDT [facility] 1 Medication Reconciliation Report [facility] Emergency Department [address] [place] [address] Phone #: ext- [phone] 10/15/2020 16:24 Patient: SCOTT SHARMA Sex: F : 1990 Age: 29yWeight: 105.6 kgHeight/Length: 62 in.BMI: 42.6ALLERGIES: cough syrup (unsure)The patient's Home Medications are listed below:CONTINUE TAKING THE FOLLOWING MEDICATIONS: Propranolol HCl ER Oral 20mg 1/2 tab , dailyThe source(s) of the original Home Medication information:Not obtained.The following Medications were given to the patient in the Emergency Department:IV NS IV Fluids bolus 1000 mL over 1 hour(s), administered: 17:10/15/2020ofirmev Drip IV bolus 0, then 1000mg, administered: 17:10/15/2020The following Medications were prescribed to the patient:IBU 400 mg tablet Take 1 tablet three times a day for 15 days -- Dispense 45 tablet. Refills: 0.Substitution permitted .Pharmacy - [id number] - [id number] [facility] ; [place] [address]. FaxNumber: . -- LAURYN Cheatham Name Value Range Interpretation Code Description Data Mary rce(s) Supporting Document(s) ID Date Data Source [id number] 10/15/2020 04:28:00 PM EDT [facility] 1 Medication Administration Record [facility] Emergency Department [address] [place] [address] Phone #: [phone]- [phone] 10/15/2020 16:24 Patient: SCOTT SHARMA Sex: F : 1990 Age: 29yWeight: 105.6 kgHeight/Length: 62 inBMI: 42.6ALLERGIES: cough syrup (unsure) Date/Time Medication Administered Medication OrderedStart IV NS NS IV 1000 mL Bolus: : Bolus [id number]:10/15/2020 Dose: IV Fluids mL (X1)Conchita Leon R.N. Bolus: 1000 mL over 1 hour(s)---- Dispensed: 1000 mL bagStop Site: #1 left AC19:12 10/15/2020Walton, Kat, R.N.Start ofirmev * Ofirmev IV 1000 mg (NOW x1,17:06 10/15/2020 Dose: 1000mg * Drip IV Infuse over 15 minutes)Conchita Leon R.N.----Stop17:25 10/15/2020Kat Suggs R.N. Name Value Range Interpretation Code Description Data Mary rce(s) Supporting Document(s) ID Date Data Source [id number] 10/15/2020 04:28:00 PM EDT [facility] 1 General Instructions [facility] Emergency Department [address] [place] [address] Phone #: ext- [phone] 10/15/2020 16:24 Patient: SCOTT SHARMA Sex: F : 1990 Age: 29yModerate dysfunctional uterine bleeding- menometrorrhagia.INSTRUCTIONSWarnings: Further evaluation is necessary. It is very important to follow up with a healthcare provider.GENERAL WARNINGS: Return or contact your physician immediately if your condition worsens orchanges unexpectedly, if not improving as expected, or if other problems arise. Specifically return if pain orbleeding worsens.Your Current Medications: Your current home medications have been reviewed.CONTINUE TAKING THE FOLLOWING MEDICATIONS:Propranolol HCl ER Oral : 20mg 1/2 tab daily.Prescription Medications:IBU 400 mg tablet Take 1 tablet three times a day for 15 days -- Dispense 45 tablet. Refills: 0.Substitution permitted.Pharmacy - [facility] #[id number] - [id number] [facility] ; [place] [address]. Phone: FaxNumber: .Follow-up:Follow up with a specialist MEDICAL PHYSICS PROFESSOR. Reason for referral: evaluation and treatment. Summary of careprovided to patient.Understanding of the discharge instructions verbalized by patient. ADDITIONAL INFORMATIONDysfunctional Uterine Bleeding 2 General Instructions [facility] Emergency Department [address] [place] [address] Phone #: ext- [phone] 10/15/2020 16:24 Patient: SCOTT SHARMA Sex: Dionicio : 1990 Age: 29yDysfunctional uterine bleeding, also called abnormal ut erine bleeding, is a condition in which bleedingis abnormal and occurs at unexpected times of the month. This happens because of changes in thehormones that help control a woman's menstrual cycle each month.The bleeding may be heavier or production assembly supervisor than normal. If you have heavy bleeding often, this can lead toa problem called anemia. With anemia, your red blood cell count is too low. Red blood cells help carryoxygen throughout your body. Severe anemia may cause you to look pale and feel very weak or tired.You might also become short of breath easily.To treat dysfunctional uterine bleeding, medicines are often tried first. If these don't help, or if youhave additional symptoms or have reached menopause, further testing and treatments may beneeded. Discuss all of your options with your provider.Home careMedicinesIf you're prescribed medicines, be sure to take them as directed. Some of the more commonmedicines you may be prescribed include: Hormone therapy (Options include most methods of hormonal control such as pills, shots, or a hormone-releasing IUD) Nonsteroidal anti-inflammatory drugs (NSAIDs), such as ibuprofen Iron supplements, if you have anemiaGeneral care Get plenty of rest if you tire easily. Avoid heavy exertion. 3 General Instructions [facility] Emergency Department [address] [place] [address], [place] [address] Phone #: ext- [phone] 10/15/2020 16:24 Patient: SCOTT SHARMA Sex: F : 1990 Age: 29y To help relieve pain or cramping that may occur with bleeding, try using a heating pad on the lower belly or back. A warm bath may also help.Follow-up careFollow up with your healthcare provider, or as directed.When to seek medical adviceCall your healthcare provider right away if: Bleeding becomes heavy (soaking 1 pad or tampon every hour for 3 hours) Increased abdominal pain Irregular bleeding worsens or does not get better even with treatment Fever of 100.4F (38C) or higher, or as directed by your provider Signs of anemia, such as pale skin, extreme fatigue or weakness, or shortness of breath Dizziness or fainting [id number] [employer] [place] [address]. All rights reserved. This information is not intended as asubstitute for professional medical care. Always follow your healthcare professional's instructions. You have been given the following additional information: Dysfunctional Uterine Bleeding(Electronically signed by LAURYN Cheatham 10/15/2020 21:33) Name Value Range Interpretation Code Description Data Mary rce(s) Supporting Document(s) ID Date Data Source [id number] 10/15/2020 04:28:00 PM EDT [facility] 1 Clinical Report - Nurses [facility] Emergency Department [address] [place] [address] Phone #: ext- [phone] 10/15/2020 16:24 Patient: SCOTT SHARMA Sex: F : 1990 Age: 29yTRIAGEAcuity: LEVEL 3.Chief Complaint: VAGINAL BLEED and ABDOMINAL PAIN, LOW BACK PAIN and ABNORMALBLEEDING.Alert. No acute distress.Onset. (3 weeks). ( PT has had vaginal bleeding that comes and goes for 3 weeks and LLQ abdominalpain that radiates to her lower back. She denies pain with urination. She went to [facility] today but leftbefore being seen). 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 SEPSIS SCREEN NEGATIVE.No suspected or confirmed signs of infection present.ARNALDO COMA SCORE: 15- eyes open- spontaneous (4); best verbal response- oriented (5); bestmotor response- obeys commands (6). --16:41 10/15/20 Kat Suggs R.N.16:32 10/15/20. BP: 153/96. MAP: 115. HR: 97. RR: 18. O2 saturation: 99%. Temp: 100.6 F. Pain levelnow: 12/04. --16:41 10/15/20 Kat Suggs R.N.Weight: 105.6 kg stated. H eight/Length: 62 inches Per Patient. BMI: 42.6. --16:41 10/15/20 Kat Suggs R.N.MedicationsPropranolol HCl ER Oral 20mg 1/2 tab , daily. --16:40 10/15/20 Kat Suggs R.N.Allergiescough syrup (unsure). --16:41 10/15/20 Kat Suggs R.N.PROBLEMS:Hypertension. --16:41 10/15/20 Kat Suggs R.N.ADDITIONAL SURGERIES:. --16:41 10/15/20 Kat Suggs R.N.HistoryPAST MEDICAL HX: Last normal menstrual period- September 27. Denies current . 2 Clinical Report - Nurses [facility] Emergency Department [address] [place] [address] Phone #: ext- [phone] 10/15/2020 16:24 Patient: SCOTT SHARMA Sex: F : 1990 Age: 29y SOCIAL HX: Light tobacco smoker (cigarette)- less than 1/2 a pack per day. Drug use: marijuana. Recently used drugs today. No alcohol use. She was offered HIV testing but declined and hepatitis C testing but declined. She has not traveled outside the [place] Infectious disease exposure: The patient was not exposed to C- diff, MRSA, VRE, CRE or Coronavirus. SELF HARM ASSESSMENT: Self harm assessment was performed. The patient answered "no" to the question(s) "Have you recently felt down, depressed, or hopeless?", "Do you have thoughts of harming or killing yourself?", "Do you have a plan for harming or killing yourself?", "Have you recently had thoughts about harming or killing others?", "Do you have any dangerous items in your possession?", "Have you noticed less interest or pleasure in doing things?", "Are you here because you tried to hurt yourself?" and "Have you ever tried to hurt yourself before today?". ABUSE ASSESSMENT: No report of abuse. NUTRITIONAL RISK ASSESSMENT: The nutritional risk assessment revealed no deficiencies. FUNCTIONAL ASSESSMENT: Functional assessment: no impairments noted. LEARNING NEEDS ASSESSMENT: The learning needs assessment revealed no barriers. FALL RISK ASSESSMENT: Fall risk assessment completed. No risk factors identified. SKIN INTEGRITY ASSESSMENT: Skin integrity risk assessment completed. No skin integrity risk identified. --16:41 10/15/20 Kat Suggs R.N. Interventions Identification and allergy band on patient. To treatment room. --16:41 10/15/20 Kat Suggs R.N.PHYSICAL ASSESSMENTAmbulatory to room.GENERAL / NEURO / PSYCH: Alert. Oriented X 4. Appears in no acute distress.HEENT: Mucous membranes are pink.RESPIRATORY: Respirations not labored. Breath sounds within normal limits.GI / : Abdominal tenderness in the left lower quadrant. Bowel sounds within normal limits. Vaginalbleeding present.SKIN: Skin is warm and dry. --17:09 10/15/20 Kat Sugsg R.N.NURSING PROGRESS NOTESReassurance given. Two patient identifiers checked. Call light placed in reach. Patient ready forevaluation- PA notified. --16:42 10/15/20 Kat Suggs R.N. Patient ID band checked for patient name and birthdate: patient confirmed. Instructions provided to collect clean catch urine and patient verbalized understanding. Clean catch urine collected; sample sent to lab for urinalysis. Specimen labeled in the presence of the patient. --16:45 10/15/20 Conchita Leon R.N. 3 Clinical Report - Nurses [facility] Emergency Department [address] [place] [address] Phone #: ext- [phone] 10/15/2020 16:24 Patient: SCOTT SHARMA Sex: F : 1990 Age: 29y 17:00 10/15/2020 Site #1 started via IV in the left antecubital space with an 18g angiocath, with aseptic technique and good blood return; one attempt. Saline lock flushed with 10 mL saline. --17:00 10/15/20 Conchita Leon R.N. 17:05 10/15/2020 Started bag #1 1000 mL IV Fluids IV NS; bolus of 1000 mL over 1 hour(s) via site #1 via IV pump. Allergies verified and confirmed 5 rights. IV patency established. IV site checked: no pain, redness, or swelling. IV flushed thoroughly pre- and post- medication administration. Information reviewed with patient including reason for taking this medication, signs of allergic reaction and precautions. Verbalizes understanding. --17:05 10/15/20 Conchita Leon R.N. 17:06 10/15/2020 ofirmev * Drip IV 1000mg --17:06 10/15/20 Conchita Leon R.N. Patient transporte d to sonogram by wheelchair with mask and tech. --17:25 10/15/20 Kat Suggs R.N. 17:48 10/15/20. Patient returned from sonogram by wheelchair with mask and tech. --18:03 10/15/20 Kat Suggs R.N. Patient transported to [place] by wheelchair with mask and tech. --18:03 10/15/20 Kat Suggs R.N. 18:00 10/15/20. BP: 117/71. MAP: 86. HR: 88. RR: 18. O2 saturation: 99%. Temp: 98.7 F. --18:04 10/15/20 Kat Suggs R.N. The patient is calm and resting quietly. Informed about plan of care. --19:02 10/15/20 Kat Suggs R.N. 17:25 10/15/2020 Ofirmev Drip IV Discontinued: bag #1 completed. Total amount infused: 50 mL. IV patency established. IV site checked: no pain, redness, or swelling. IV flushed thoroughly. --19:12 10/15/20 Kat Suggs R.N. 19:12 10/15/2020 IV Fluids IV NS via IV site #1 Discontinued: bag #1 completed upon discharge. Total amount infused: 1000 mL. IV patency established. IV site checked: no pain, redness, or swelling. IV flushed thoroughly. --19:12 10/15/20 Kat Suggs R. N.DISPOSITION / DISCHARGE No learning barriers present. Discharge instructions provided and reviewed with the patient. Reviewed warnings (return for worsening symptoms). Reviewed medication(s) side effects, precautions, dosing and course information. Prescription(s) sent electronically to pharmacy (ibu 400mg). Reviewed referral to an piping blocker and a facilities planner. Patient verbalized understanding. Written instructions provided in Scottish. No treatment instructions. The patient was discharged by the physician marketing operations assistant. She was discharged home. She left ambulatory and via private vehicle. Room Service Food Server driving. --19:18 10/15/20 Shaun Ríos 19:16 10/15/20. BP: 101/54 taken on the right arm, via an automated monitor, while sitting. MAP: 69. HR: 4 Clinical Report - Nurses [facility] Emergency Department [address] [place] [address] Phone #: ext- [phone] 10/15/2020 16:24 Patient: SCOTT SHARMA Sex: F : 1990 Age: 29y 78 (regular, normal rate and strong). RR: 16 (regular, unlabored and normal). O2 saturation: 100% on room air. Temp: 98 F (oral). Pain level now: 0/10. --19:18 10/15/20 Shaun Ríos.Locked/Released at 10/15/2020 19:18 by Shaun Ríos Name Value Range Interpretation Code Description Data Mary rce(s) Supporting Document(s) ID Date Data Source [id number] 10/15/2020 04:28:00 PM EDT [facility] 1 Clinical Report - Physicians/Mid Levels [facility] Emergency Department [address] [place] [address] Phone #: ext- [phone] 10/15/2020 16:24 Patient: SCOTT SHARMA Sex: F : 1990 Age: 29y Time Seen: 16:32 10/15/2020. Arrived- By private vehicle. Historian- patient.HISTORY OF PRESENT ILLNESS Chief Complaint: VAGINAL BLEEDING. ABDOMINAL PAIN, LOW BACK PAIN and ABNORMAL BLEEDING. This started 3 weeks ago; PT has had vaginal bleeding that comes and goes for 3 weeks and LLQ abdominal pain that radiates to her lower back. She denies pain with urination. She went to [facility] today but left before being seen) and still present. It was gradual in onset and has been constant. The symptoms are described as moderate. The patient has had abdominal pain, flank pain and abnormal bleeding. No pain with urination, urinary frequency, urgency of urination or hematuria. Last normal menstrual period- September 27. Similar symptoms previously. Recent medical care: Not recently seen/assessed.REVIEW OF SYSTEMSNo nausea, vomiting, black stools, headache or fever. No chills, anorexia, eye discomfort, sore throat orcough. No difficulty breathing, chest pain, skin rash, enlarged lymph nodes or joint pain. The patient hashad diarrhea.PAST HISTORYProblems:Hypertension. Additional Surgeries: . Medications: Propranolol HCl ER Oral 20mg 1/2 tab , daily. Allergies: cough syrup (unsure).SOCIAL HISTORYLight tobacco smoker- less than 1/2 a pack per day. Drug use: marijuana. No alcohol use.PHYSICAL EXAMVital Signs: 10/15/2020 16:32 BP: 153/96. MAP: 115. HR: 97. RR: 18. O2 saturation: 99%. Temp: 100.6F. Pain level now: 710. Have been reviewed as abnormal. Hypertensive. Febrile. Oxygen saturation 2 Clinical Report - Physicians/Mid Levels [facility] Emergency Department [address] [place] [address] Phone #: ext- [phone] 10/15/2020 16:24 Patient: SCOTT SHARMA Sex: F D OB: 1990 Age: 29y normal. Appearance: Alert. Oriented X3. No acute distress. HEENT: Normal external inspection. ENT: Pharynx normal. Neck: Neck supple. CVS: Tachycardia. Respiratory: No respiratory distress. Breath sounds normal. Abdomen: Soft. Mild tenderness in the left lower quadrant. Bowel sounds normal. No organomegaly. No mass. Back: Mild CVA tenderness on the left. Skin: Skin warm and dry. Normal skin color. No rash. Normal skin turgor. Extremities: Extremities nontender. No lower extremity edema. Neuro: Oriented X 3.LABS, X- RAYS, AND EKGCT Abdomen - Pelvis: Normal study. Abdomen - pelvic CT performed without contrast. The study wasinterpreted by the radiologist and contemporaneously by me. Interpretation time: 19:00 10/15/2020.Pelvic Sonogram: very limiited exam. ENDO 1.5 cm, estimated. sm fluid in the cx. R ov nad, left ov notvisualized. Study type: transvaginal evaluation. The study was interpreted by the radiologist andcontemporaneously by me. Interpretation time: 19:00 10/15/2020.Laboratory Tests: Laboratory tests have been ordered, with results reviewed and considered in themedical decision making process. US Pelvis: (TIMOTHY: 10/15/2020 16:58) ( [facility] [place] 10/15/[place] 18:00) Canceled US PELVIC Reason(s): Abnormal Bleeding TRANSPORTATION: WC IV? O2? Oxygen?(No) Room: ED CT ABD PEL W/O Oral W/O IV Contrast: (TIMOTHY: 10/15/2020 16:58) ( [facility] 10/15/2020 18:17) In Progress CT ABD Reason(s): Abdominal Pain TRANSPORTATION: WC IV? IV?(Yes) O2? Oxygen?(No) Ro : HCG Pending CMTS: LLQ pain and Left Flank Pain CBC w Diff: (TIMOTHY: 10/15/2020 17:05) ( [facility] 10/15/2020 17:30) Final results Test Result Flag Units (Reference) CBC W/AUTOMATED DIFF COMPLETE BLOOD COUNT WBC 10.3 10/uL (4.2 - 11.0) RBC 4.91 10/uL (4.20 - 5.40) HEMOGLOBIN 13.1 g/dL (12.0 - 16.0) HEMATOCRIT 40.7 % (37.0 - 47.0) MCV 82.9 fL (81.0 - 101) MCH 26.7 L pg (27.0 - 34.0) MCHC 32.2 g/dL (31.0 - 36.0) RDW 14.4 % (11.5 - 14.5) PLATELETS 349 10/uL (150 - 450) 3 Clinical Report - Physicians/Mid Levels [facility] Emergency Department [address] [place] [address] Phone #: ext- [phone] 10/15/2020 16:24 Patient: SCOTT SHARMA [facility]#: [id number] Sex: F : 1990 Age: 29y MPV 10.3 fL (7.4 - 10.4) NEUT 60.4 % (37.0 - 80.0) LYMPH 29.3 % (25.0 - 40.0) MONO 7.8 % (3.0 - 8.0) EOS 1.4 % (0.0 - 7.0) BASO 0.7 % (0.0 - 2.5) %IG 0.4 H % (0.0 - 0.0) %NRBC 0.0 % (0.0 - 0.0) #NEUT 6.20 10/uL (2.00 - 6.90) #LYMPH 3.01 10/uL (0.60 - 3.40) #MONO 0.80 10/uL (0.00 - 0.90) #EOS 0.14 10/uL (0.00 - 0.70) #BASO 0.07 10/uL (0.00 - 0.20) #IG 0.04 10/uL (0.00 - 0.10) #NRBC 0.00 10/uL (0.00 - 0.00) MANUAL DIFF NOT INDICATED RBC MORPH NOT INDICATEDCMP: (TIMOTHY: 10/15/2020 17:05) ( MsgRcvd 10/15/2020 17:44) Final results Test Result Flag Units (Reference) COMPREHENSIVE METABOLIC PANEL COMPREHENSIVE METABOLIC PANEL SODIUM 138 mEq/L (134 - 153) POTASSIUM 4.0 mEq/L (3.6 - 5.0) CHLORIDE 104 mEq/L (98 - 107) CO2 26 MEQ/L (22 - 30) GLUCOSE 108 H MG/DL (70 - 99) BUN 14 MG/DL (7 - 21) CREATININE 0.6 L MG/DL (0.7 - 1.5) BUN/CREAT 23 (8 - 27) TOTAL PROTEIN 7.1 G/DL (6.3 - 8.2) ALBUMIN 4.1 G/DL (3.9 - 5.0) GLOBULIN 3.0 GM/DL (2.4 - 3.2) A/G RATIO 1.4 (0.8 - 2.0) CALCIUM 9.3 MG/DL (8.4 - 10.2) TOTAL BILI <0.7 MG/DL (0.2 - 1.3) ALKALINE PHOS 81 U/L (38 - 126) SGOT/AST 18 U/L (5 - 40) SGPT/ALT 14 U/L (7 - 56) ANION GAP 8.0 mmol/L (8.0 - 16.0) AGE 29 yrs NON-AA GFR >60 mL/min AFR AMER GFR >60 mL/min Male GFR Interprentation 20-49 yrs >60 mL/min Twmfsv69-42 yrs >56 mL/min Normal 60-69 yrs >49 mL/min Normal 70-79yrs>42 mL/min Normal 80 and above >35 mL/min Normal Female GFRInterpretation 20-39 yrs >60 mL/min Normal 40-49 yrs >58 mL/minNormal 50-59 yrs >51 mL/min Normal 60-69 yrs >45 mL/min Fghqtq71-62 yrs >39 mL/min Normal 80 and above >32 mL/min NormalLactic Acid: (TIMOTHY: 10/15/2020 17:05) [facility] Final results Test Result Flag Units (Reference) LACTIC ACID 1.3 MMOL/L (0.2 - 2.2)Lipase: (TIMOTHY: 10/15/2020 17:05) ( MsgRcvd 10/15/2020 17:43) Final results Test Result Flag Units (Reference) LIPASE 22 U/L (13 - 60) 4 Clinical Report - Physicians/Mid Levels [facility] Emergency Department [address] [place] [address] Phone #: ext- [phone] 10/15/2020 16:24 Patient: SCOTT SHARMA Sex: F : 1990 Age: 29y Beta-HCG, Qual Urine: (TIMOTHY: 10/15/2020 16:40) [facility] 17:23) Final results Test Result Flag Units (Reference) HCG URINE QUAL NEGATIVE (NORMAL: NEGAT HCG URINE QL REENTER NEGATIVE (NORMAL: NEGAT { KIT LOT # [id number] ){ KIT EXP DATE 03-27-22 ){ PROCEDURAL CONTROL VALID ) Urinalysis: (TIMOTHY: 10/15/2020 16:40) ( [facility] 17:09) Final results Test Result Flag Units (Reference) URINALYSIS URINALYSIS SOURCE Clean Catch COLOR yellow (NORMAL: Yello CLARITY hazy (NORMAL: Clear SPEC GRAVITY 1.010 (1.001 - 1.030 pH 7 (5 - 9) GLUCOSE NORM (NORMAL: Negat BILIRUBIN NEG (NORMAL: Negat KETONE NEG (NORMAL: Negat PROTEIN NEG (NORMAL: Negat NI TRITE NEG (NORMAL: Negat BLOOD 250 A (NORMAL: Negat LEUK EST 25 (NORMAL: Negat UROBILINOGEN 1 (less than 1.0 MICROSCOPIC See Below WBC 1 - 3 (NORMAL: NONE EPITHELIAL FEW (NORMAL: NONE BACTERIA Trace (NORMAL: NONE AMORPH SED RARE (NORMAL: NONE.PROGRESS AND PROCEDURESCourse of Care: 19:Oct 15 2020. Evaluation after observation. (Discussed Pelvic US, CT A/P resultsand pt will follow up with MEDICAL PHYSICS PROFESSOR.). Patient counseled in person regarding the patient's stable condition, test results, diagnosis and need for follow-up. Patient agrees with plan of care. :Oct 15 2020. Disposition: Discharged home in good and improved condition (:Oct 15 2020).CLINICAL IMPRESSION Moderate dysfunctional uterine bleeding- menometrorrhagia. 5 Clinical Report - Physicians/Mid Levels [facility] Emergency Department [address] [place] [address] Phone #: ext- [phone] 10/15/2020 16:24 [id number] Sex[facility] : 1990 Age: 29yINSTRUCTIONS Warnings: Further evaluation is necessary. It is very important to follow up with a healthcare provider. GENERAL WARNINGS: Return or contact your physician immediately if your condition worsens or changes unexpectedly, if not improving as expected, or if other problems arise. Specifically return if pain or bleeding worsens. Your Current Medications: Your current home medications have been reviewed. CONTINUE TAKING THE FOLLOWING MEDICATIONS: Propranolol HCl ER Oral : 20mg 1/2 tab daily. Prescription Medications: IBU 400 mg tablet Take 1 tablet three times a day for 15 days -- Dispense 45 tablet. Refills: 0. Substitution permitted. Pharmacy - [id number] - [id number] [place] [address]. . Follow-up: Follow up with a specialist MEDICAL PHYSICS PROFESSOR. Reason for referral: evaluation and treatment. Summary of care provided to patient. Understanding of the discharge instructions verbalized by patient.(Electronically signed by LAURYN Cheatham 10/15/2020 21:33) Name Value Range Interpretation Code Description Data Mary rce(s) Supporting Document(s) ID Date Data Source [id number] 10/15/2020 05:44:00 PM EDT [facility] Name Value Range Interpretation Code Description Data Mary rce(s) Supporting Document(s) COMPREHENSIVE METABOLIC PANEL [facility] COMPREHENSIVE METABOLIC PANEL Sodium [Moles/volume] in Serum or Plasma 138 mEq/L 134 - 153 [facility] Potassium [Moles/volume] in Serum or Plasma 4.0 mEq/L 3.6 - 5.0 [facility] Chloride [Moles/volume] in Serum or Plasma 104 mEq/L 98 - 107 [facility] Carbon dioxide, total [Moles/volume] in Serum or Plasma 26 MEQ/L 22 - 30 [facility] Glucose [Mass/volume] in Serum or Plasma 108 MG/DL 70 - 99 H [facility] BUN 14 MG/DL 7 - 21 [facility] Creatinine [Mass/volume] in Serum or Plasma 0.6 MG/DL 0.7 - 1.5 L [facility] BUN/CREAT 23 8 - 27 [facility] Protein [Mass/volume] in Serum or Plasma 7.1 G/DL 6.3 - 8.2 [facility] Albumin [Mass/volume] in Serum or Plasma 4.1 G/DL 3.9 - 5.0 [facility] Globulin [Mass/volume] in Serum by calculation 3.0 GM/DL 2.4 - 3.2 [facility] A/G RATIO 1.4 0.8 - 2.0 [facility] Calcium [Mass/volume] in Serum or Plasma 9.3 MG/DL 8.4 - 10.2 [facility] Bilirubin.total [Mass/volume] in Serum or Plasma <0.7 MG/DL 0.2 - 1.3 [facility] Alkaline phosphatase [Enzymatic activity/volume] in Serum or Plasma 81 U/L 38 - 126 [facility] Aspartate aminotransferase [Enzymatic activity/volume] in Serum or Plasma 18 U/L 5 - 40 [facility] Alanine aminotransferase [Enzymatic activity/volume] in Seru m or Plasma 14 U/L 7 - 56 [facility] Anion gap 3 in Serum or Plasma 8.0 mmol/L 8.0 - 16.0 [facility] AGE 29 yrs [facility] al NON-AA GFR >60 mL/min [facility] ital AFR AMER GFR >60 mL/min [facility] Male GFR In terprentation 20-49 yrs >60 mL/min Normal 50-59 yrs >56 mL/min Normal 60-69 yrs >49 mL/min Normal 70-79yrs >42 mL/min Normal 80 and above >35 mL/min Normal Female GFR Interpretation 20-39 yrs >60 mL/min Normal 40-49 yrs >58 mL/min Normal 50-59 yrs >51 mL/min Normal 60-69 yrs >45 mL/min Normal 70-79 yrs >39 mL/min Normal 80 and above >32 mL/min Normal ID Date Data Source [id number] 10/15/2020 05:43:00 PM EDT [facility] Name Value Range Interpretation Code Description Data Mary rce(s) Supporting Document(s) Lipase [Enzymatic activity/volume] in Serum or Plasma 22 U/L 13 - 60 [facility] ID Date Data Source [id number] 10/15/2020 05:30:00 PM EDT [facility] Name Value Range Interpretation Code Description Data Mary rce(s) Supporting Document(s) CBC W/AUTOMATED DIFF [facility] COMPLETE BLOOD COUNT Leukocytes [#/volume] in Blood by Automated count 10.3 10^3/uL 4.2 - 11.0 [facility] Erythrocytes [#/volume] in Blood by Automated count 4.91 10^6/uL 4. 20 - 5.40 [facility] Hemoglobin [Mass/volume] in Blood 13.1 g/dL 12.0 - 16.0 [facility] Hematocrit [Volume Fraction] of Blood by Automated count 40.7 % 3 7.0 - 47.0 [facility] Erythrocyte mean corpuscular volume [Entitic volume] by Auto mated count 82.9 fL 81.0 - 101 [facility] Erythrocyte mean corpuscular hemoglobin [Entitic mass] by Automated count 26.7 pg 27.0 - 34.0 L [facility] Erythrocyte mean corpuscular hemoglobin concentration [Mass/volume] by Automated count 32.2 g/dL 31.0 - 36.0 [facility] Erythrocyte distribution width [Ratio] by Automated count 14.4 % 11.5 - 14.5 [facility] Platelets [#/volume] in Blood by Automated count 349 10^3/uL 150 - 45 0 [facility] Platelet mean volume [Entitic volume] in Blood by Automated count 10.3 fL 7.4 - 10.4 [facility] Neutrophils/100 leukocytes in Blood by Automated count 60.4 % 37. 0 - 80.0 [facility] Lymphocytes/100 leukocytes in Blood by Manual count 29.3 % 25.0 - 40.0 [facility] Monocytes/100 leukocytes in Blood by Automated count 7.8 % 3.0 - 8.0 [facility] Eosinophils/100 leukocytes in Blood by Automated count 1.4 % 0.0 - 7.0 [facility] Basophils/100 leukocytes in Blood by Automated count 0.7 % 0.0 - 2.5 [facility] %IG 0.4 % 0.0 - 0.0 H [facility] %NRBC 0.0 % 0.0 - 0.0 [facility] Neutrophils [#/volume] in Blood by Automated count 6.20 10^3/uL 2.00 - 6.90 [facility] Lymphocytes [#/volume] in Blood by Automated count 3.01 10^3/uL 0.60 - 3.40 [facility] Monocytes [#/volume] in Blood by Automated count 0.80 10^3/uL 0.00 - 0.90 [facility] Eosinophils [#/volume] in Blood by Automated count 0.14 10^3/uL 0.00 - 0.70 [facility] Basophils [#/volume] in Blood by Automated count 0.07 10^3/uL 0.00 - 0.20 [facility] #IG 0.04 10^3/uL 0.00 - 0.10 [facility] #NRBC 0.00 10^3/uL 0.00 - 0.00 [facility] MANUAL DIFF NOT INDICATED [facility] RBC MORPH NOT INDICATED [facility] ID Date Data Source [id number] 10/15/2020 05:24:00 PM EDT [facility] Name Value Range Interpretation Code Description Data Mary rce(s) Supporting Document(s) Lactate [Moles/volume] in Serum or Plasma 1.3 MMOL/L 0.2 - 2.2 [facility] ID Date Data Source [id number] 10/15/2020 05:23:00 PM EDT [facility] Name Value Range Interpretation Code Description Data Mary rce(s) Supporting Document(s) HCG URINE QUAL NEGATIVE NORMAL: NEGATIVE [facility] HCG URINE QL REENTER NEGATIVE NORMAL: NEGATIVE [facility] { KIT LOT # [id number] ){ KIT EXP DATE 03-27-22 ){ PROCEDURAL CONTROL VALID ) ID Date Data Source [id number] 10/15/2020 05:09:00 PM EDT [facility] Name Value Range Interpretation Code Description Data Mary rce(s) Supporting Document(s) URINALYSIS [facility] codie URINALYSIS SOURCE Clean Catch [facility] ital COLOR yellow NORMAL: Yellow [facility] CLARITY hazy NORMAL: Clear [facility] Specific gravity of Urine by Test strip 1.010 1.001 - 1.030 [facility] pH 7 5 - 9 [facility] Glucose [Mass/volume] in Urine by Test strip NORM NORMAL: Negat [facility] Bilirubin.total [Presence] in Urine by Test strip NEG NORMAL: Negative [facility] Ketones [Presence] in Urine by Test strip NEG NORMAL: Negative [facility] Protein [Mass/volume] in Urine by Test strip NEG NORMAL: Negat [facility] Nitrite [Presence] in Urine by Test strip NEG NORMAL: Negative [facility] BLOOD 250 NORMAL: Negative [facility] Leukocyte esterase [Presence] in Urine by Test strip 25 PAULINE L: Negative [facility] Urobilinogen [Mass/volume] in Urine by Test strip 1 less jcarlos n 1.0 mg/dL [facility] MICROSCOPIC See Below [facility] ital WBC 1 - 3 NORMAL: NONE SEEN [facility] EPITHELIAL FEW NORMAL: NONE SEEN [facility] Bacteria [Presence] in Urine sediment by Light microscopy Tr justa NORMAL: NONE SEEN [facility] Amorphous sediment [Presence] in Urine sediment by Light brett roscopy RARE NORMAL: NONE SEEN [facility] ID Date Data Source [id number] 09/15/2020 07:55:00 PM EDT [facility] Name Value Range Interpretation Code Description Data Mary rce(s) Supporting Document(s) COVID-19 RT-PCR [employer]POSIT [employer]OR SWAB Not Detected Not Detected [facility] A not detected (negative) test result fo r this test means that SARS-CoV-2 RNA was not present in the specimen above the limit ofdetection. Laboratory test results should always be considered in thecontext of clinical observations and epidemiological data in making afinal diagnosis and patient management decisions. Results will bereported to government agencies as required.This test has received Emergency Use Authorization (EUA). We will continue to follow federal and state requirements for COVID-19 reporting. This test has been authorized only for the detection of RNAfrom SARS-CoV-2 virus and diagnosis of SARS-CoV-2 virus infection, notfor any other viruses or pathogens. This test is only authorized for the duration of the declaration that circumstances exist justifying the authorization of the emergency use of in vitro diagnostic tests for detection of SARS-CoV-2 virus and/or diagnosis of SARS-CoV-2 virusinfection under section 564(b)(1) of the Act, 21 U.S.C. section 360bbb-3(b)(1), unless the authorization is terminated or revoked sooner. We will continue to follow federal and state requirements for both notification of results and any confirmatory testing that is required by another agency. This test was developed and its performance characteristics determined by [employer] and verified at [employer]. It has not been cleared or approved by the U.S. Food and Drug Administration for diagnostic use. This test has been authorized by FDA under an EUA for use by authorized laboratories. Results should be used in conjunction with clinical findings, and should not form the sole basis for a diagnosis or treatment decision. Methods: SARS-CoV-2 Multiplex RT-PCR Assay ID Date Data Source [id number] 09/15/2020 03:10:00 PM EDT [facility] ([facility]) Name Value Range Interpretation Code Description Data Mary rce(s) Supporting Document(s) HCG negative Hcg [facility] ([facility]) ID Date Data Source [id number] 09/14/2020 10:15:00 AM EDT [facility] Name Value Range Interpretation Code Description Data Mary rce(s) Supporting Document(s) SARS-CoV-2 (COVID-19) N gene [Presence] in Respiratory specimen by KIA with probe detection NEGATIVE [facility] This lab was ordered by [facility] and reported by [facility]. ID Date Data Source [id number] 09/14/2020 12:00:00 AM EDT [facility] Name Value Range Interpretation Code Description Data Mary rce(s) Supporting Document(s) Carestart Rapid COVID Antigen Test Negative [facility] This lab was reported by [facility]. ID Date Data Source [id number] 08/18/2020 09:13:00 AM EDT [facility] ([facility]) Name Value Range Interpretation Code Description Data Mary rce(s) Supporting Document(s) sars-cov-2 negative negative Sars-cov-2 [facility] ([facility]) ID Date Data Source [id number] 08/18/2020 09:13:00 AM EDT [facility] ([facility]) Name Value Range Interpretation Code Description Data Mary rce(s) Supporting Document(s) sars-cov-2 negative negative Sars-cov-2 [facility] ([facility]) ID Date Data Source [id number] 08/18/2020 09:13:00 AM EDT [facility] ([facility]) Name Value Range Interpretation Code Description Data Mary rce(s) Supporting Document(s) sars-cov-2 negative negative Sars-cov-2 [facility] ([facility]) ID Date Data Source [id number] 08/18/2020 09:12:00 AM EDT [facility] Name Value Range Interpretation Code Description Data Mary rce(s) Supporting Document(s) SARS coronavirus 2 RdRp gene [Presence] in Respiratory specimen by KIA with probe detection Not detected [facility] This lab was ordered by [facility] and reported by [facility]. Procedure Social History No Information Vital Signs ID Date Data Source [facility] Name Value Range Interpretation Code Description Data Source(s) Diastolic blood pressure 86 mm[Hg] 86 mm[Hg] [facility] ([facility]) Body height 62 [in_i] 62 [in_i] [facility] ([facility]) Body mass index (BMI) [Ratio] 43.8 kg/m2 43.8 k g/m2 [facility] ([facility]) Systolic blood pressure 128 mm[Hg] 128 mm[Hg] [facility] Body weight 3832 [oz_av] 3832 [oz_av] [facility] ([facility]) Diastolic blood pressure 84 mm[Hg] 84 mm[Hg] [facility] ([facility]) Body weight 3606 [oz_av] 3606 [oz_av] [facility] ([facility]) Body height 62 [in_i] 62 [in_i] [facility] ([facility]) Body mass index (BMI) [Ratio] 41.2 kg/m2 41.2 k g/m2 [facility] ([facility]) Systolic blood pressure 120 mm[Hg] 120 mm[Hg] A [facility] ([facility]) Diastolic blood pressure 84 mm[Hg] 84 mm[Hg] [facility] ([facility]) Body height 62 [in_i] 62 [in_i] [facility] ([facility]) Body mass index (BMI) [Ratio] 41.2 kg/m2 41.2 k g/m2 [facility] ([facility]) Systolic blood pressure 120 mm[Hg] 120 mm[Hg] [facility] Body weight 3606 [oz_av] 3606 [oz_av] [facility] ([facility]) Patient Treatment Plan of Care Planned Activity Planned Date Details Description Data Source (s) Propranolol Hydrochloride 20 MG Oral Tablet [facility] ([facility]) Ibuprofen 400 MG Oral Tablet [facility] ([facility])
[2021-03-15] MEDS ORDERED: LEXA1TAB (22:22)
[2021-03-15] MEDS ORDERED: PERI12LIQ (22:22)
--- OUTSIDE RECORDS SUMMARY | 2021-03-16 07:29 | CCD ---
Author Author [facility] Organization [facility] Address Unknown Phone Unavailable Care Team Providers Care Palliative Care Specialist Name Role Phone Maring, Capo PA Unavailable [...] is protected by Article 27-F of the [facility] Public Health law. If you continue you may have access to information: Regarding HIV / AIDS; Provided by facilities licensed or operated by the [facility] Office of Mental Health; or Provided by the [facility] Office for People With Developmental Disabilities. If such information is present, then the following [facility] mandated warning applies: This information has been [...] law may result in a fine or prison sentence or both. A general authorization for the release of medical or other information is NOT sufficient authorization for further disc losure. Allergies and Adverse Reactions Type Description Substance Reaction Status Data Source(s ) Allergy to substance Allergy to substance Allergy to substance [place] ([facility]) Encounters Encounter Providers Location Date Indications Data Source(s ) Outpatient Attender: AISHWARYA HIGUERA MD 12/24 08:27:35 AM EDT - 12/24/2020 10:01:20 AM EDT [facility] ([facility] ) Noel Kruse RPA-C: [address], [place] [address], Ph. Attender: NOEL KRUSE RPA-C [facility] Medical 12/15/2020 12:00:00 AM EDT [facility] ([facility]) Emergency Attender: Hal Moore MDConsultant: STAFF NON 10/15/2020 04:28:00 PM EDT - 10/15/2020 07:18:00 PM EDT [facility] Patient discharged. Outpatient Attender: Capo COMBS 09/20/19 02:00:54 PM EDT - 09/19/2020 02:23:47 PM EDT [facility] ([facility] ) Dustin Garcia MD: [address], [place] [address], Ph. Attender: Dustin Garcia MD [facility] Medical 09/15/2020 12:00:00 AM EDT [facility] ([facility]) Dustin Garcia MD: [address], [place] [address], Ph. Attender: Dustin Garcia MD [facility] Medical 09/15/2020 12:00:00 AM EDT [facility] ([facility]) Outpatient Attender: Capo COMBS 09/15/19 10:00:24 AM EDT - 09/14/2020 10:42:07 AM EDT [facility] ([facility] ) Outpatient Attender: Capo COMBS 08/23/19 09:46:55 AM EDT - 08/22/2020 10:19:01 AM EDT [facility] ([facility] ) Jaimie Hermosillo PA-C: [address], [facility] [place] [place] [address], Ph. Attender: Jaimie COMBS [facility] 08/18/2020 12:00:00 AM EDT [facility]) Jaimie Hermosillo PA-C: [address], [facility] [place] [address], Ph. Attender: Jaimie CMOBS [facility] 08/18/2020 12:00:00 AM EDT [facility]) Jaimie Hermosillo PA-C: [address], [place] [address], Ph. Attender: Jaimie COMBS [facility] 08/18/2020 12:00:00 AM EDT [place] ([facility]) Medications Medication Brand Name Start Date Product [...] propranolol hydrochloride 20 MG Oral Tablet [facility] ([facility]) Ibuprofen 400 MG Oral Tablet ibuprofen 4 00 mg tablet TAKE ONE TABLET BY MOUTH THREE TIMES A DAY ibuprofen 400 mg tablet TAKE ONE TABLET BY MOUTH THREE TIMES A DAY completed ibuprofen 400 MG Oral Tablet [facility] ([facility]) Insurance Providers Payer name Policy type / Coverage type Policy ID Covered democrat ID Covered democrat's relationship to medrano Policy Medrano Plan Information Medicaid Medicaid [id number] Self [id number] Medicaid Medicaid [id number] Self [id number] [facility] Insurance Co. [id number] Self [id number] [facility] MEDICAID [id number] SP [id number] D FORMERLY [facility] CARE OF [place] - [id number] 18 [id number] FORMERLY [facility] [id number] SP [id number] FORMERLY [facility] [id number] SP [id number] Problems, Conditions, and Diagnoses Code Display Name Description Problem Type Effective Dates Data Source(s) Z15880 Nicotine dependence, cigarettes, uncompl icated Nicotine dependence, cigarettes, uncomplicated Diagnosis 10/15/2020 04:28:00 PM EDT [facility] I10 Essential (primary) hypertension Essential (primary) h ypertension Diagnosis 10/15/2020 04:28:00 PM EDT [facility] N921 Excessive and frequent menstruation with irregular cycle Excessive and frequent menstruation with irregular cycle Diagnosis 10/15/2020 04:28: 00 PM EDT [facility] N939 Abnormal uterine and vaginal bleeding, u nspecified Abnormal uterine and vaginal bleeding, unspecified Diagnosis 10/15/2020 04:28:00 PM EDT [facility] [id number] Generalized anxiety disorder Generalized Anxiety Disor sintia Problem 12/31/2020 12:00:00 AM EDT [place] ([facility]) [id number] Morbid obesity Morbid Obesity Problem 12/31/2020 12:00: 00 AM EDT [place] ([facility]) [id number] Atypical chest pain Atypical Chest Pain Problem 0 09/16/2020 12:00:00 AM EDT [place] ([facility]) [id number] Atypical chest pain Atypical Chest Pain Problem 0 09/16/2020 12:00:00 AM EDT [place] ([facility]) [id number] Chronic back pain Chronic Back Pain Problem 09/15 12:00:00 AM EDT [place] ([facility]) [id number] Essential hypertension Essential Hypertension Problem 09/15/2020 12:00:00 AM EDT [place] ([facility]) 260563801 Chronic back pain Chronic Back Pain Problem 09/15 12:00:00 AM EDT [place] ([facility]) [id number] Essential hypertension Essential Hypertension Problem 09/15/2020 12:00:00 AM EDT [place] ([facility]) Surgeries/Procedures Procedure Description Date Indications Data Source(s) XR, lumbosacral spine, 2 or 3 view 09/15/2020 12:00:00 AM EDT [place] ([facility]) XR, thoracic spine, 3 view 09/15/2020 12:00:00 AM EDT [place] ([facility]) XR, lumbosacral spine, 2 or 3 view 09/15/2020 12:00:00 AM EDT [place] ([facility]) XR, thoracic spine, 3 view 09/15/2020 12:00:00 AM EDT [place] ([facility]) Results ID Date Data Source [id number] 02/05/2021 01:09:00 PM EDT [facility] Name Value Range Interpretation Code Description Data Mary rce(s) Supporting Document(s) SARS COVID ANTIGEN NEGATIVE [facility] This lab was ordered by OTTO rios nd reported by [facility]. ID Date Data Source [id number] 12/24/2020 08:45:00 AM EDT [facility] Name Value Range Interpretation Code Description Data Mary rce(s) Supporting Document(s) SARS-CoV-2 RNA Resp Ql KIA+probe NOT DETECTED [facility] This lab was ordered by SHELLI cruz and reported by SHELLI Flores. ID Date Data Source [id number] 10/18/2020 10:01:00 AM EDT [facility] [address] [place] [address] PHONE: [phone] FAX: [phone] Name .................. : ZACHARY Maguire Acct Number.................. : [id number] ROOM. ................. : VT-04 MR Number ................... : [id number] Stay type ............. : E/R Discharge Date......... ... : 10/15/20 Admit Date .... ..... : 10/15/20 Admit Phys .................... : HEMANTH Emmanuel Date of ....... : 1990 Family Phys ................... : NON STAFF Phone .................. : [phone] Age ................................ : 29 Film# .................. .:[id number] Sex ................................. : F Unsigned transcriptions are preliminary reports and do not represent a medical or legal document CT ABD & PELV W/O ORAL W/O IV [id number] COMPLETE:10/15/20 18:17 KJE [id number] Reason(s): Abdominal Pain CT OF THE ABDOMEN [...] By Tristian Mayer M.D. , 10/18/20 10:01, [facility] [address] [place] [address] PHONE: [phone] FAX: [phone] Name .................. : ZACHARY Maguire Acct Number.................. : [id number] ROOM. ................. : VT-04 Number ................... : [id number] Stay type ............. : E/R Discharge Date......... ... : 10/15/20 Admit Date ......... : 10/15/20 Admit Phys .................... : HEMANTH Emmanuel Date of ....... : 1990 Family Phys ................... : NON STAFF Phone .................. : [phone] Age ................................ : 29 Film# .................. .:[id number] Sex ................................. : F Unsign ed transcriptions are preliminary reports and do not represent a medical or legal document CT ABD & PELV W/O ORAL W/O [place] [id number] COMPLETE:10/15/20 18:17 KJE [id number] Reason(s): Abdominal Pain Transcribe Initials: DZ , Transcribe Date: 10/16/20 02:55, Dictation Date: Copy for: NICOLLE FLORENCE via fax Copy for: EMERGENCY DEPT via modem Copy for: 710 MED REC DISCHARGED Page 2 of 2 Name Value Range Interpretation Code Description Data Mary rce(s) Supporting Document(s) ID Date Data Source [id number] 10/18/2020 10:00:[place] [address] PHONE: [phone] FAX: [phone] Name .................. : ZACHARY SCOTT Maguire Acct Number.................. : [id number] ROOM. ................. : VT-04 Number ................... : [id number] Stay type ............. : E/R Discharge Date......... ... : 10/15/20 Admit Date .... ..... : 10/15/20 Admit Phys .................... : HEMANTH Emmanuel Date of ....... : 1990 Family Phys ................... : NON STAFF Phone .................. : [phone] Age ................................ : 29 Film# .................. .:[id number] Sex ................................. : F Unsigned transcriptions are preliminary reports and do not represent a medical or legal document TRANSVAGINAL(NON OB) [id number] COMPLETE:10/16/20 01:43 ADB [id number] Reason for Exam: ABNORMAL VAGINAL BLEEDING TRANSVAGINAL [...] rce(s) Supporting Document(s) ID Date Data Source [id number] 10/15/2020 04:28:00 PM EDT [facility] 1 OrderSheet [facility] Emergency Department [address] [place] [address] Phone #: ext- [phone] 10/15/2020 16:24 Patient: [...] W/O IV Christiano Delgado PA;(Oxygen?(No)) 2 OrderSheet [facility] Emergency Department [address] [place] [address] Phone #: ext- [phone] 10/15/2020 16:24 Patient: SCOTT SHARMA Sex: F [...] rce(s) Supporting Document(s) ID Date Data Source [id number] 10/15/2020 04:28:00 PM EDT [facility] 1 Medication Reconciliation Report [facility] Emergency Department [address] [place] [address] Phone #: ext- [phone] 10/15/2020 16:24 Patient: [...] 45 tablet. Refills: 0.Substitution permitted .Pharmacy - [facility] / TLL #01 - [address] [facility] ; [place] [address]. FaxNumber: . -- LAURYN Cheatham Name Value Range Interpretation Code Description Data Mary rce(s) Supporting Document(s) ID Date Data Source [id number] 10/15/2020 04:28:00 PM EDT [facility] 1 Medication Administration Record [facility] Emergency Department [address] [place] [address] Phone #: vcc- [phone] 10/15/2020 16:24 Patient: SCOTT SHARMA Sex: F : 1990 Age: 29yWeight: 105.6 kgHeight/Length: 62 inBMI: 42.6ALLERGIES: cough syrup (unsure) Date/Time Medication Administered Medication OrderedStart IV NS NS IV 1000 mL Bolus: : Bolus 372212:10/15/2020 Dose: IV Fluids mL (X1)Conchita Leon R.N. Bolus: 1000 mL over 1 hour(s)---- Dispensed: 1000 mL bagStop Site: #1 left AC19:12 10/15/2020Walton, Kat, R.N.Start ofirmev * Ofirmev IV 1000 mg (NOW x1,17:06 10/15/2020 Dose: 1000mg * Drip IV Infuse over 15 minutes)Conchita Leon R.N.----Stop17:25 10/15/2020Kat Suggs R.N. Name Value Range Interpretation Code Description Data Mary rce(s) Supporting Document(s) ID Date Data Source [id number] 10/15/2020 04:28:00 PM EDT [facility] 1 General Instructions [facility] Emergency Department [address] [place] [address] Phone #: ext- [phone] 10/15/2020 16:24 Patient: SCOTT SHARMA Sex: F [...] Dispense 45 tablet. Refills: 0.Substitution permitted.Pharmacy - [facility] / TLL #74 - [address] [facility] ; [place] [address]. Phone: FaxNumber: .Follow-up:Follow up with a specialist CLOTHING CONSULTANT. Reason for referral: evaluation and treatment. Summary of careprovided to patient.Understanding of the discharge instructions verbalized by patient. ADDITIONAL INFORMATIONDysfunctional Uterine Bleeding 2 General Instructions [facility] Emergency Department [address] [place] [address] Phone #: ext- [phone] 10/15/2020 16:24 Patient: SCOTT SHARMA Sex: Dionicio : 1990 Age: 29yDysfunctional uterine bleeding, also called abnormal ut erine bleeding, is a condition in which bleedingis abnormal and occurs at unexpected times of the month. This happens because of changes in thehormones that help control a woman's menstrual cycle each month.The bleeding may be heavier or dubbing machine operator than normal. If you have heavy bleeding [...] easily. Avoid heavy exertion. 3 General Instructions [facility] Emergency Department [address] [place] [address], [place] [address] Phone #: ext- [phone] 10/15/2020 16:24 Patient: [...] or shortness of breath Dizziness or fainting [id number] [employer]. [address] [place] [address]. All rights reserved. This information is not intended as asubstitute for professional medical care. Always follow your healthcare professional's instructions. You have been given the following additional information: Dysfunctional Uterine Bleeding(Electronically signed by LAURYN Cheatham 10/15/2020 21:33) Name Value Range Interpretation Code Description Data Mary rce(s) Supporting Document(s) ID Date Data Source [id number] 10/15/2020 04:28:00 PM EDT [facility] 1 Clinical Report - Nurses [facility] Emergency Department [address] [place] [address] Phone #: ext- [phone] 10/15/2020 16:24 Patient: SCOTT SHARMA Sex: F : 1990 Age: 29yTRIAGEAcuity: LEVEL 3.Chief Complaint: VAGINAL BLEED and ABDOMINAL PAIN, LOW BACK PAIN and ABNORMALBLEEDING.Alert. No acute distress.Onset. (3 weeks). ( PT has had vaginal bleeding that comes and goes for 3 weeks and LLQ abdominalpain that radiates to her lower back. She denies pain with urination. She went to [facility] today but leftbefore being seen). No fever.Treatment DIRECTOR ENERGY:Took Tylenol and ibuprofen.SEPSIS SCREEN: SIRS SCREEN NEGATIVE: [...] current . 2 Clinical Report - Nurses [facility] Emergency Department [address] [place] [address] Phone #: ext- [phone] 10/15/2020 16:24 Patient: SCOTT SHARMA Sex: F [...] is warm and dry. --17:09 10/15/20 Kat Suggs R.N.NURSING PROGRESS NOTESReassurance given. Two patient identifiers [...] Leon R.N. 3 Clinical Report - Nurses [facility] Emergency Department [address] [place] [address] Phone #: ext- [phone] 10/15/2020 16:24 Patient: SCOTT SHARMA Sex: F [...] 10/15/20 Kat Suggs R.N. Patient transported to [place] by wheelchair with mask and tech. --18:03 [...] pharmacy (ibu 400mg). Reviewed referral to an marketing communications leader and a polytechnic registrar. Patient verbalized understanding. Written instructions provided in [place] [facility]. No treatment instructions. The patient was discharged by the physician senior court office assistant. She was discharged home. She left ambulatory and via private vehicle. Nursing Staff Development Coordinator driving. --19:18 10/15/20 Shaun Ríos 19:16 10/15/20. BP: 101/54 taken on the right arm, via an automated monitor, while sitting. MAP: 69. HR: 4 Clinical Report - Nurses [facility] Emergency Department [address] [place] [address] Phone #: ext- [phone] 10/15/2020 16:24 Patient: [...] rce(s) Supporting Document(s) ID Date Data Source [id number] 10/15/2020 04:28:00 PM EDT [facility] 1 Clinical Report - Physicians/Mid Levels [facility] Emergency Department [address] [place] [address] Phone #: ext- [phone] 10/15/2020 16:24 Patient: SCOTT SHARMA Sex: F [...] denies pain with urination. She went to [facility] today but left before being seen) [...] saturation 2 Clinical Report - Physicians/Mid Levels [facility] Emergency Department [address] [place] [address] Phone #: ext- [phone] 10/15/2020 16:24 Patient: [...] process. US Pelvis: (TIMOTHY: 10/15/2020 16:58) ( [facility] 10/15/2020 18:00) Canceled US PELVIC Reason(s): Abnormal Bleeding TRANSPORTATION: WC IV? O2? Oxygen?(No) Room: ED CT ABD PEL W/O Oral W/O IV Contrast: (TIMOTHY: 10/15/2020 16:58) ( [facility] 10/15/2020 18:17) In Progress CT ABD Reason(s): Abdominal Pain TRANSPORTATION: WC IV? IV?(Yes) O2? Oxygen?(No) Ro : HCG Pending CMTS: LLQ pain and Left Flank Pain CBC w Diff: (TIMOTHY: 10/15/2020 17:05) ( [facility] 10/15/2020 17:30) Final results Test Result Flag [...] 450) 3 Clinical Report - Physicians/Mid Levels [facility] Emergency Department [address] [place] [address] Phone #: ext- [phone] 10/15/2020 16:24 Patient: SCOTT SHARMA [facility]#: [id number] Sex: F : 1990 Age: 29y MPV [...] Male GFR Interprentation 20-49 yrs >60 mL/min Djfnnm09-35 yrs >56 mL/min Normal 60-69 yrs >49 mL/min Normal 70-79yrs>42 mL/min Normal 80 and above >35 mL/min Normal Female GFRInterpretation 20-39 yrs >60 mL/min Normal 40-49 yrs >58 mL/minNormal 50-59 yrs >51 mL/min Normal 60-69 yrs >45 mL/min [id number] yrs >39 mL/min Normal 80 and above >32 mL/min NormalLactic Acid: (TIMOTHY: 10/15/2020 17:05) ( [facility] 10/15/2020 17:24) Final results Test Result Flag Units (Reference) LACTIC ACID 1.3 MMOL/L (0.2 - 2.2)Lipase: (TIMOTHY: 10/15/2020 17:05) ( [facility] 10/15/2020 17:43) Final results Test Result Flag Units (Reference) LIPASE 22 U/L (13 - 60) 4 Clinical Report - Physicians/Mid Levels [facility] Emergency Department [address] [place] [address] Phone #: ext- [phone] 10/15/2020 16:24 Patient: SCOTT SHARMA Sex: F : 1990 Age: 29y Beta-HCG, Qual Urine: (TIMOTHY: 10/15/2020 16:40) ( [facility] 10/15/2020 17:23) Final results Test Result Flag Units (Reference) HCG URINE QUAL NEGATIVE (NORMAL: NEGAT HCG URINE QL REENTER NEGATIVE (NORMAL: NEGAT { KIT LOT # [id number] ){ KIT EXP DATE 03-27-22 ){ PROCEDURAL CONTROL VALID ) Urinalysis: (TIMOTHY: 10/15/2020 16:40) ( [facility] 10/15/2020 17:09) Final results Test Result Flag [...] A/P resultsand pt will follow up with CLOTHING CONSULTANT.). Patient counseled in person regarding the patient's stable condition, test results, diagnosis and need for follow-up. Patient agrees with plan of care. :Oct 15 2020. Disposition: Discharged home in good and improved condition (:Oct 15 2020).CLINICAL IMPRESSION Moderate dysfunctional uterine bleeding- menometrorrhagia. 5 Clinical Report - Physicians/Mid Levels [facility] Emergency Department [address] [place] [address] Phone #: ext- [phone] 10/15/2020 16:24 [id number] Sex[facility] F : 1990 Age: 29yINSTRUCTIONS Warnings: [...] tablet. Refills: 0. Substitution permitted. Pharmacy - [facility] / TLL #10 - [address] [place] [address]. . Follow-up: Follow up with a specialist CLOTHING CONSULTANT. Reason for referral: evaluation and treatment. Summary of care provided to patient. Understanding of the discharge instructions verbalized by patient.(Electronically signed by LAURYN Cheatham 10/15/2020 21:33) Name Value Range Interpretation Code Description Data Mary rce(s) Supporting Document(s) ID Date Data Source [id number] 10/15/2020 05:44:00 PM EDT [facility] Name Value Range Interpretation Code Description Data Mary rce(s) Supporting Document(s) COMPREHENSIVE METABOLIC PANEL [facility] COMPREHENSIVE METABOLIC PANEL Sodium [Moles/volume] in Serum or Plasma 138 mEq/L 134 - 153 [facility] Potassium [Moles/volume] in Serum or Plasma 4.0 mEq/L 3.6 - 5.0 [facility] Chloride [Moles/volume] in Serum or Plasma 104 mEq/L 98 - 107 [facility] Carbon dioxide, total [Moles/volume] in Serum or Plasma 26 MEQ/L 22 - 30 [facility] Glucose [Mass/volume] in Serum or Plasma 108 MG/DL 70 - 99 H [facility] BUN 14 MG/DL 7 - 21 [facility] Creatinine [Mass/volume] in Serum or Plasma 0.6 MG/DL 0.7 - 1.5 L [facility] BUN/CREAT 23 8 - 27 [facility] Protein [Mass/volume] in Serum or Plasma 7.1 G/DL 6.3 - 8.2 [facility] Albumin [Mass/volume] in Serum or Plasma 4.1 G/DL 3.9 - 5.0 [facility] Globulin [Mass/volume] in Serum by calculation 3.0 GM/DL 2.4 - 3.2 [facility] A/G RATIO 1.4 0.8 - 2.0 [facility] Calcium [Mass/volume] in Serum or Plasma 9.3 MG/DL 8.4 - 10.2 [facility] Bilirubin.total [Mass/volume] in Serum or Plasma <0.7 MG/DL 0.2 - 1.3 [facility] Alkaline phosphatase [Enzymatic activity/volume] in Serum or Plasma 81 U/L 38 - 126 [facility] Aspartate aminotransferase [Enzymatic activity/volume] in Serum or Plasma 18 U/L 5 - 40 [facility] Alanine aminotransferase [Enzymatic activity/volume] in Seru m or Plasma 14 U/L 7 - 56 [facility] Anion gap 3 in Serum or Plasma 8.0 mmol/L 8.0 - 16.0 [facility] AGE 29 yrs [facility] al NON-AA GFR >60 mL/min [facility] ital AFR AMER GFR >60 mL/min [facility] spital Male GFR In terprentation 20-49 [...] >32 mL/min Normal ID Date Data Source [id number] 10/15/2020 05:43:00 PM EDT [facility] Name Value Range Interpretation Code Description Data Mary rce(s) Supporting Document(s) Lipase [Enzymatic activity/volume] in Serum or Plasma 22 U/L 13 - 60 [facility] ID Date Data Source [id number] 10/15/2020 05:30:00 PM EDT [facility] Name Value Range Interpretation Code Description Data Mary rce(s) Supporting Document(s) CBC W/AUTOMATED DIFF [facility] COMPLETE BLOOD COUNT Leukocytes [#/volume] in Blood by Automated count 10.3 10^3/uL 4.2 - 11.0 [facility] Erythrocytes [#/volume] in Blood by Automated count 4.91 10^6/uL 4. 20 - 5.40 [facility] Hemoglobin [Mass/volume] in Blood 13.1 g/dL 12.0 - 16.0 [facility] Hematocrit [Volume Fraction] of Blood by Automated count 40.7 % 3 7.0 - 47.0 [facility] Erythrocyte mean corpuscular volume [Entitic volume] by Auto mated count 82.9 fL 81.0 - 101 [facility] Erythrocyte mean corpuscular hemoglobin [Entitic mass] by Automated count 26.7 pg 27.0 - 34.0 L [facility] Erythrocyte mean corpuscular hemoglobin concentration [Mass/volume] by Automated count 32.2 g/dL 31.0 - 36.0 [facility] Erythrocyte distribution width [Ratio] by Automated count 14.4 % 11.5 - 14.5 [facility] Platelets [#/volume] in Blood by Automated count 349 10^3/uL 150 - 45 0 [facility] [facility] Platelet mean volume [Entitic volume] in Blood by Automated count 10.3 fL 7.4 - 10.4 [facility] Neutrophils/100 leukocytes in Blood by Automated count 60.4 % 37. 0 - 80.0 [facility] Lymphocytes/100 leukocytes in Blood by Manual count 29.3 % 25.0 - 40.0 [facility] Monocytes/100 leukocytes in Blood by Automated count 7.8 % 3.0 - 8.0 [facility] Eosinophils/100 leukocytes in Blood by Automated count 1.4 % 0.0 - 7.0 [facility] Basophils/100 leukocytes in Blood by Automated count 0.7 % 0.0 - 2.5 [facility] %IG 0.4 % 0.0 - 0.0 H [facility] %NRBC 0.0 % 0.0 - 0.0 [facility] Neutrophils [#/volume] in Blood by Automated count 6.20 10^3/uL 2.00 - 6.90 [facility] Lymphocytes [#/volume] in Blood by Automated count 3.01 10^3/uL 0.60 - 3.40 [facility] Monocytes [#/volume] in Blood by Automated count 0.80 10^3/uL 0.00 - 0.90 [facility] Eosinophils [#/volume] in Blood by Automated count 0.14 10^3/uL 0.00 - 0.70 [facility] Basophils [#/volume] in Blood by Automated count 0.07 10^3/uL 0.00 - 0.20 [facility] #IG 0.04 10^3/uL 0.00 - 0.10 [facility] #NRBC 0.00 10^3/uL 0.00 - 0.00 [facility] MANUAL DIFF NOT INDICATED [facility] RBC MORPH NOT INDICATED [facility] ID Date Data Source [id number] 10/15/2020 05:24:00 PM EDT [facility] Name Value Range Interpretation Code Description Data Mary rce(s) Supporting Document(s) Lactate [Moles/volume] in Serum or Plasma 1.3 MMOL/L 0.2 - 2.2 [facility] ID Date Data Source [id number] 10/15/2020 05:23:00 PM EDT [facility] Name Value Range Interpretation Code Description Data Mary rce(s) Supporting Document(s) HCG URINE QUAL NEGATIVE NORMAL: NEGATIVE [facility] HCG URINE QL REENTER NEGATIVE NORMAL: NEGATIVE [facility] { KIT LOT # [id number] ){ KIT EXP DATE 03-27-22 ){ PROCEDURAL CONTROL VALID ) ID Date Data Source [id number] 10/15/2020 05:09:00 PM EDT [facility] Name Value Range Interpretation Code Description Data Mary rce(s) Supporting Document(s) URINALYSIS [facility] codie URINALYSIS SOURCE Clean Catch [facility] COLOR yellow NORMAL: Yellow [facility] CLARITY hazy NORMAL: Clear [facility] Specific gravity of Urine by Test strip 1.010 1.001 - 1.030 [facility] pH 7 5 - [facility] Glucose [Mass/volume] in Urine by Test strip NORM NORMAL: Negat [facility] Bilirubin.total [Presence] in Urine by Test strip NEG NORMAL: Negative [facility] Ketones [Presence] in Urine by Test strip NEG NORMAL: Negative [facility] Protein [Mass/volume] in Urine by Test strip NEG NORMAL: Negat [facility] Nitrite [Presence] in Urine by Test strip NEG NORMAL: Negative [facility] BLOOD 250 NORMAL: Negative [facility] Leukocyte esterase [Presence] in Urine by Test strip 25 PAULINE L: Negative [facility] Urobilinogen [Mass/volume] in Urine by Test strip 1 less jcarlos n 1.0 mg/dL [facility] MICROSCOPIC See Below [facility] ital WBC 1 - 3 NORMAL: NONE SEEN [facility] EPITHELIAL FEW NORMAL: NONE SEEN [facility] Bacteria [Presence] in Urine sediment by Light microscopy Tr justa NORMAL: NONE SEEN [facility] Amorphous sediment [Presence] in Urine sediment by Light brett roscopy RARE NORMAL: NONE SEEN [facility] ID Date Data Source [id number] 09/15/2020 07:55:00 PM EDT [facility] Name Value Range Interpretation Code Description Data Mary rce(s) Supporting Document(s) COVID-19 RT-PCR [employer] SWAB Not Detected Not Detected [facility] A not detected (negative) test [...] developed and its performance characteristics determined by [employer] and verified at [facility]. It has not been cleared or approved by the U.S. Food and Drug Administration for diagnostic use. This test has been authorized by FDA under an EUA for use by authorized laboratories. Results should be used in conjunction with clinical findings, and should not form the sole basis for a diagnosis or treatment decision. Methods: SARS-CoV-2 Multiplex RT-PCR Assay ID Date Data Source [id number] 09/15/2020 03:10:00 PM EDT [place] ([facility]) Name Value Range Interpretation Code Description Data Mary rce(s) Supporting Document(s) HCG negative Hcg [place] ([facility]) ID Date Data Source [id number] 09/14/2020 10:15:00 AM EDT [facility] Name Value Range Interpretation Code Description Data Mary rce(s) Supporting Document(s) SARS-CoV-2 (COVID-19) N gene [Presence] in Respiratory specimen by [facility] with probe detection NEGATIVE [facility] This lab was ordered by [facility] and reported by [facility]. ID Date Data Source [id number] 09/14/2020 12:00:00 AM EDT [facility] Name Value Range Interpretation Code Description Data Mary rce(s) Supporting Document(s) Carestart Rapid COVID Antigen Test Negative [facility] This lab was reported by [facility]. ID Date Data Source [id number] 08/18/2020 09:13:00 AM EDT [facility] ([facility]) Name Value Range Interpretation Code Description Data Mary rce(s) Supporting Document(s) sars-cov-2 negative negative Sars-cov-2 [place] ([facility]) ID Date Data Source [id number] 08/18/2020 09:13:00 AM EDT [place] ([facility]) Name Value Range Interpretation Code Description Data Mary rce(s) Supporting Document(s) sars-cov-2 negative negative Sars-cov-2 [place] ([facility]) ID Date Data Source [id number] 08/18/2020 09:13:00 AM EDT [place] ([facility]) Name Value Range Interpretation Code Description Data Mary rce(s) Supporting Document(s) sars-cov-2 negative negative Sars-cov-2 [place] ([facility]) ID Date Data Source [id number] 08/18/2020 09:12:00 AM EDT [facility] Name Value Range Interpretation Code Description Data Mary rce(s) Supporting Document(s) SARS coronavirus 2 RdRp gene [Presence] in Respiratory specimen by [facility] with probe detection Not detected [facility] This lab was ordered by [facility] and reported by [facility]. Procedure Social History No Information Vital Signs ID Date Data Source UNK Name Value Range Interpretation Code Description Data Source(s) Diastolic blood pressure 86 mm[Hg] 86 mm[Hg] [place] ([facility]) Body height 62 [in_i] 62 [in_i] [place] ([facility]) Body mass index (BMI) [Ratio] 43.8 kg/m2 43.8 k g/m2 [facility] ([facility]) Systolic blood pressure 128 mm[Hg] 128 mm[Hg] [facility] ([facility]) Body weight 3832 [oz_av] 3832 [oz_av] [facility] ([facility]) Diastolic blood pressure 84 mm[Hg] 84 mm[Hg] [facility] ([facility]) Body height 62 [in_i] 62 [in_i] [facility] ([facility]) Body mass index (BMI) [Ratio] 41.2 kg/m2 41.2 k g/m2 [facility] ([facility]) Systolic blood pressure 120 mm[Hg] 120 mm[Hg] [facility] ([facility]) Body weight 3606 [oz_av] 3606 [oz_av] [facility] ([facility]) Diastolic blood pressure 84 mm[Hg] 84 mm[Hg] [facility] ([facility]) Body height 62 [in_i] 62 [in_i] [facility] ([facility]) Body mass index (BMI) [Ratio] 41.2 kg/m2 41.2 k g/m2 [facility] ([facility]) Systolic blood pressure 120 mm[Hg] 120 mm[Hg] [facility] ([facility]) Body weight 3606 [oz_av] 3606 [oz_av] [facility] ([facility]) Patient Treatment Plan of Care Planned Activity Planned Date Details Description Data Source (s) Propranolol Hydrochloride 20 MG Oral Tablet [facility] ([facility]) Ibuprofen 400 MG Oral Tablet [facility] ([facility])
[2021-03-16] MEDS ORDERED: MAGIC MOUTHWASH *ED ONLY* 5ML ORAL SYRINGE SSP ONE (07:30)
[2021-03-16] MEDS ORDERED: CLINDAMYCIN 150MG CAPSULE PO ONE (07:30)
[2021-03-16] MEDS ORDERED: CLEO300C2 PO (07:57)
[2021-03-16] MEDS ORDERED: MAGICMW SSP (07:57)
[2021-03-16 08:15] VITALS: BP 133/83
== END 2021-03-16 08:10 | disposition home or self-care (01) ==
LOC: M ED 22:07
DX: K03.81 Cracked tooth (principal); I10 Essential (primary) hypertension; Z88.8 Allergy status to other drugs, medicaments and biological substances; Z79.899 Other long term (current) drug therapy

== ENCOUNTER 2021-08-14 14:49 | Emergency (ER) | payer OTHER, SELFPAY ==
[~2021-08-14] VITALS: Ht 157.5 cm; Wt 106.4 kg
[~2021-08-14 14:49] MED LIST changes: +CLEO300C2 PO; +LEXA1TAB; +MAGICMW SSP; +PERI12LIQ
[2021-08-14] MEDS ORDERED: NS 500 ML IV ONE (15:10)
[2021-08-14 15:47] LABS: BASO # 0.1 10^3/uL (0.0-0.2); BASO % 0.6 % (0.0-1.0); EOS # 0.1 10^3/uL (0.0-0.5); EOS % 1.4 % (0.0-3.0); LYMPH # 3.1 10^3/uL (1.5-5.0); LYMPH % 33.1 % (24.0-44.0); MEAN CORPUSCULAR HEMOGLOBIN 25.9 pg (27.0-33.0); MEAN CORPUSCULAR HGB CONC 31.8 g/dl (32.0-36.5); MEAN CORPUSCULAR VOLUME 81.5 fl (80.0-96.0); MONO # 0.6 10^3/uL (0.0-0.8); MONO % 6.8 % (2.0-8.0); NEUTROPHILS # 5.4 10^3/uL (1.5-8.5); NEUTROPHILS % 57.9 % (36.0-66.0); PLATELET COUNT, AUTOMATED 355 10^3/uL (150-450); WHITE BLOOD COUNT 9.3 10^3/uL (4.0-10.0)
[2021-08-14 16:10] LABS: CK-MB VALUE MASS 1.3 NG/ML (<3.6); MB/CK RELATIVE INDEX 1.1 (< OR =4)
[2021-08-14 16:30] LABS: ALBUMIN 3.8 GM/DL (3.2-5.2); ALT/SGPT 22 U/L (12-78); BILIRUBIN,DIRECT < 0.1 MG/DL (0.0-0.2); BILIRUBIN,TOTAL 0.1 MG/DL (0.2-1.0); BLOOD UREA NITROGEN 17 MG/DL (7-18); CALCIUM LEVEL 9.3 MG/DL (8.5-10.1); CARBON DIOXIDE LEVEL 31 MEQ/L (21-32); CHLORIDE LEVEL 104 MEQ/L (98-107); CREATININE FOR GFR 0.76 MG/DL (0.55-1.30); FREE T4 0.84 NG/DL (0.76-1.46); GLOMERULAR FILTRATION RATE > 60.0 (>60); GLUCOSE, FASTING 99 MG/DL (70-100); LIPASE 128 U/L (73-393); NT-PRO BNP 39 PG/ML (<125); POTASSIUM SERUM 4.4 MEQ/L (3.5-5.1); SODIUM LEVEL 137 MEQ/L (136-145); TOTAL PROTEIN 7.4 GM/DL (6.4-8.2)
[2021-08-14] MEDS ORDERED: ISOVUE-370 76% 100ML VIAL As Ordered ONE (16:50)
[2021-08-14 17:02] LABS: CK-MB VALUE MASS 1.3 NG/ML (<3.6); MB/CK RELATIVE INDEX 1.2 (< OR =4)
[2021-08-14 18:02] VITALS: BP 107/57
== END 2021-08-14 18:41 | disposition home or self-care (01) ==
LOC: M ED 14:49
DX: R07.9 Chest pain, unspecified (principal); R06.02 Shortness of breath; I10 Essential (primary) hypertension; E11.9 Type 2 diabetes mellitus without complications; F33.9 Major depressive disorder, recurrent, unspecified; Z79.899 Other long term (current) drug therapy; Z88.8 Allergy status to other drugs, medicaments and biological substances; F17.210 Nicotine dependence, cigarettes, uncomplicated
CPT/HCPCS: 71045; 71275; 80047; 80048; 80076; 82550; 82553; 83605; 83690; 83880; 84439; 84443; 84484; 84702; 85025; 87040; 93005; 93041; 94760; 96360; 96361; 99285; Q9967

== ENCOUNTER 2021-09-13 23:20 | Emergency (ER) | payer SELFPAY ==
[~2021-09-13] VITALS: Ht 157.5 cm; Wt 102.7 kg
== END 2021-09-13 23:42 | disposition left against medical advice (07) ==
LOC: M ED 23:20
DX: Z53.29 Procedure and treatment not carried out because of patient's decision for other reasons (principal)

== ENCOUNTER 2021-12-25 10:10 | Emergency (ER) | payer OTHER, SELFPAY ==
[~2021-12-25] VITALS: Ht 157.5 cm; Wt 114.4 kg
[2021-12-25 10:42] LABS: BASO # 0.1 10^3/uL (0.0-0.2); BASO % 0.9 % (0.0-1.0); EOS # 0.1 10^3/uL (0.0-0.5); EOS % 1.1 % (0.0-3.0); HEMATOCRIT 39.8 % (36.0-47.0); HEMOGLOBIN 12.9 g/dl (12.0-15.5); LYMPH # 2.8 10^3/uL (1.5-5.0); MEAN CORPUSCULAR HEMOGLOBIN 26.3 pg (27.0-33.0); MEAN CORPUSCULAR HGB CONC 32.4 g/dl (32.0-36.5); MEAN CORPUSCULAR VOLUME 81.2 fl (80.0-96.0); MONO # 0.6 10^3/uL (0.0-0.8); MONO % 5.9 % (2.0-8.0); NEUTROPHILS % 62.7 % (36.0-66.0); PLATELET COUNT, AUTOMATED 331 10^3/uL (150-450); WHITE BLOOD COUNT 9.6 10^3/uL (4.0-10.0)
[2021-12-25 11:10] LABS: CK-MB VALUE MASS < 1.0 NG/ML (<3.6); CPK CREATINE PHOSPHOKINASE 65 U/L (26-192); MB/CK RELATIVE INDEX 1.54 (< OR =4)
[2021-12-25 11:15] LABS: ALBUMIN 3.6 GM/DL (3.2-5.2); ALT/SGPT 28 U/L (12-78); BILIRUBIN,DIRECT < 0.1 MG/DL (0.0-0.2); BILIRUBIN,TOTAL 0.3 MG/DL (0.2-1.0); BLOOD UREA NITROGEN 14 MG/DL (7-18); CALCIUM LEVEL 9.5 MG/DL (8.5-10.1); CARBON DIOXIDE LEVEL 25 MEQ/L (21-32); CHLORIDE LEVEL 105 MEQ/L (98-107); CREATININE FOR GFR 0.78 MG/DL (0.55-1.30); GLOMERULAR FILTRATION RATE > 60.0 (>60); GLUCOSE, FASTING 129 MG/DL (70-100); NT-PRO BNP 52 PG/ML (<125); POTASSIUM SERUM 4.5 MEQ/L (3.5-5.1); SODIUM LEVEL 137 MEQ/L (136-145); THYROXINE (T4) 6.6 UG/DL (4.5-12.0); TOTAL PROTEIN 7.3 GM/DL (6.4-8.2)
[2021-12-25] MEDS ORDERED: ISOVUE-370 76% 100ML VIAL As Ordered ONE (11:32)
[2021-12-25 12:07] LABS: CK-MB VALUE MASS < 1.0 NG/ML (<3.6); CPK CREATINE PHOSPHOKINASE 62 U/L (26-192); MB/CK RELATIVE INDEX 1.61 (< OR =4)
[2021-12-25 14:00] VITALS: BP 123/77
== END 2021-12-25 14:01 | disposition home or self-care (01) ==
LOC: M ED 10:10
DX: R06.00 Dyspnea, unspecified (principal); R60.9 Edema, unspecified; I10 Essential (primary) hypertension; F31.9 Bipolar disorder, unspecified; Z88.8 Allergy status to other drugs, medicaments and biological substances; Z79.899 Other long term (current) drug therapy
CPT/HCPCS: 36415; 71045; 71275; 80047; 80048; 80076; 82550; 82553; 83880; 84436; 84443; 85025; 87486; 87581; 87633; 87798; 93005; 93041; 93306; 93970; 94760; 99284; Q9967

== ENCOUNTER → 2021-12-29 | Outpatient (CLI) | payer OTHER | LOC: M SLEEP HO 14:20 | PROVIDERS: ATTEND Internal Medicine Cardiovascular Disease | DX: G47.33 Obstructive sleep apnea (adult) (pediatric) (principal); I50.810 Right heart failure, unspecified ==

== ENCOUNTER 2022-01-28 18:36 | Emergency (ER) | payer OTHER ==
[~2022-01-28] VITALS: Ht 157.5 cm; Wt 117.4 kg
[2022-01-28] MEDS ORDERED: HYDR-3363 (18:44)
[2022-01-28] MEDS ORDERED: KETOROLAC 30 MG/ML 1ML VIAL IV ONE (21:10)
[2022-01-28] MEDS ORDERED: ACETAMINOPHEN 500 MG TAB PO ONE (21:10)
[2022-01-28 21:25] LABS: VENOUS BASE EXCESS 1.8 (-2.0-2.0); VENOUS HCO3 27.1 MEQ/L (23.0-27.0); VENOUS PARTIAL PRESSURE CO2 45.1 mmHg (38.0-50.0); VENOUS PARTIAL PRESSURE O2 47.9 mmHg (30.0-50.0); VENOUS PH 7.397 UNITS (7.330-7.430); VENOUS STANDARD HCO3 25.8 MEQ/L; VENOUS TOTAL CO2 28.5 MEQ/L (24.0-28.0)
[2022-01-28 21:27] LABS: BASO # 0.1 10^3/uL (0.0-0.2); BASO % 0.7 % (0.0-1.0); EOS # 0.2 10^3/uL (0.0-0.5); EOS % 1.3 % (0.0-3.0); HEMATOCRIT 37.5 % (36.0-47.0); HEMOGLOBIN 12.1 g/dl (12.0-15.5); LYMPH # 4.4 10^3/uL (1.5-5.0); LYMPH % 34.2 % (24.0-44.0); MEAN CORPUSCULAR HEMOGLOBIN 26.1 pg (27.0-33.0); MEAN CORPUSCULAR HGB CONC 32.3 g/dl (32.0-36.5); MEAN CORPUSCULAR VOLUME 80.8 fl (80.0-96.0); MONO # 0.9 10^3/uL (0.0-0.8); NEUTROPHILS # 7.1 10^3/uL (1.5-8.5); NEUTROPHILS % 55.9 % (36.0-66.0); PLATELET COUNT, AUTOMATED 353 10^3/uL (150-450); RED BLOOD COUNT 4.64 10^6/uL (4.00-5.40); WHITE BLOOD COUNT 12.8 10^3/uL (4.0-10.0)
[2022-01-28 21:44] VITALS: BP 128/81
[2022-01-28 22:09] LABS: CK-MB VALUE MASS < 1.0 NG/ML (<3.6); CPK CREATINE PHOSPHOKINASE 51 U/L (26-192); MB/CK RELATIVE INDEX 1.96 (< OR =4)
== END 2022-01-28 22:34 | disposition home or self-care (01) ==
LOC: M ED 18:36
DX: R07.89 Other chest pain (principal); R06.00 Dyspnea, unspecified; R60.9 Edema, unspecified; I10 Essential (primary) hypertension; E05.90 Thyrotoxicosis, unspecified without thyrotoxic crisis or storm; Z88.8 Allergy status to other drugs, medicaments and biological substances; Z79.899 Other long term (current) drug therapy; F17.200 Nicotine dependence, unspecified, uncomplicated
CPT/HCPCS: 71045; 80047; 82550; 82553; 82803; 84702; 85025; 85379; 93005; 96374; 99284; J1885

== ENCOUNTER 2022-01-31 09:51 | Emergency (ER) | payer OTHER ==
[~2022-01-31] VITALS: Ht 157.5 cm; Wt 113.6 kg
[~2022-01-31 09:51] MED LIST changes: +HYDR-3363
[2022-01-31] MEDS ORDERED: IBUPROFEN 800 MG TAB PO ONE (12:50)
[2022-01-31 13:36] VITALS: BP 132/73
== END 2022-01-31 13:41 | disposition home or self-care (01) ==
LOC: M ED 09:51
DX: M70.61 Trochanteric bursitis, right hip (principal); I10 Essential (primary) hypertension; F31.9 Bipolar disorder, unspecified; F32.A Depression, unspecified; F41.9 Anxiety disorder, unspecified; E05.90 Thyrotoxicosis, unspecified without thyrotoxic crisis or storm; R00.0 Tachycardia, unspecified; Z79.899 Other long term (current) drug therapy; Z88.8 Allergy status to other drugs, medicaments and biological substances; F17.210 Nicotine dependence, cigarettes, uncomplicated

== ENCOUNTER → 2022-03-06 | Outpatient (CLI) | payer OTHER | LOC: M LAB 12:39 | PROVIDERS: ATTEND Surgery | DX: F18.10 Inhalant abuse, uncomplicated (principal); F17.210 Nicotine dependence, cigarettes, uncomplicated | CPT/HCPCS: 36415; G0480 ==

== ENCOUNTER → 2022-06-16 | Outpatient (REF) | payer OTHER | LOC: M LAB REF 16:42 | PROVIDERS: ATTEND Physician Assistant | DX: E03.9 Hypothyroidism, unspecified (principal) ==

== ENCOUNTER 2022-06-25 20:35 | Emergency (ER) | payer OTHER ==
[~2022-06-25] VITALS: Ht 157.5 cm; Wt 120.4 kg
[2022-06-25 20:36] VITALS: BP 136/80
[2022-06-25] MEDS ORDERED: LEVO25TA5 PO (20:43)
[2022-06-26] MEDS ORDERED: ONDA4TAB6 PO (01:35)
[2022-06-26] MEDS ORDERED: IBUPROFEN 800 MG TAB PO ONE (02:00)
[2022-06-26] MEDS ORDERED: ONDANSETRON 4MG ORAL DISINTEGRATING TAB PO ONE (02:00)
[2022-06-26] MEDS ORDERED: ACETAMINOPHEN 500 MG TAB PO ONE (02:00)
== END 2022-06-26 02:01 | disposition home or self-care (01) ==
LOC: M ED 20:35
DX: J06.9 Acute upper respiratory infection, unspecified (principal); I10 Essential (primary) hypertension; E03.9 Hypothyroidism, unspecified; F31.9 Bipolar disorder, unspecified; F41.9 Anxiety disorder, unspecified; E66.9 Obesity, unspecified; F17.200 Nicotine dependence, unspecified, uncomplicated; Z79.899 Other long term (current) drug therapy; Z88.8 Allergy status to other drugs, medicaments and biological substances

== ENCOUNTER 2022-09-02 17:24 | Emergency (ER) | payer OTHER ==
[~2022-09-02] VITALS: Ht 157.5 cm; Wt 121.4 kg
[~2022-09-02 17:24] MED LIST changes: +LEVO25TA5 PO; +ONDA4TAB6 PO
[2022-09-02] MEDS ORDERED: ACETAMINOPHEN 1000MG 100ML IV BAG IV ONE (18:10)
[2022-09-02] MEDS ORDERED: ONDANSETRON 4MG 2ML VIAL IV ONE (18:10)
[2022-09-02] MEDS ORDERED: NS 1,000 ML IV ONE (18:10)
[2022-09-02 18:32] LABS: BASO # 0.1 10^3/uL (0.0-0.2); BASO % 1.1 % (0.0-1.0); EOS # 0.1 10^3/uL (0.0-0.5); EOS % 1.7 % (0.0-3.0); HEMATOCRIT 40.6 % (36.0-47.0); HEMOGLOBIN 12.7 g/dl (12.0-15.5); LYMPH # 2.1 10^3/uL (1.5-5.0); LYMPH % 39.9 % (24.0-44.0); MEAN CORPUSCULAR HEMOGLOBIN 25.5 pg (27.0-33.0); MEAN CORPUSCULAR HGB CONC 31.3 g/dl (32.0-36.5); MEAN CORPUSCULAR VOLUME 81.5 fl (80.0-96.0); MONO # 0.7 10^3/uL (0.0-0.8); MONO % 13.6 % (2.0-8.0); NEUTROPHILS # 2.3 10^3/uL (1.5-8.5); NEUTROPHILS % 43.3 % (36.0-66.0); PLATELET COUNT, AUTOMATED 293 10^3/uL (150-450); RED BLOOD COUNT 4.98 10^6/uL (4.00-5.40); WHITE BLOOD COUNT 5.3 10^3/uL (4.0-10.0)
[2022-09-02 18:36] LABS: APPEARANCE, URINE HAZY (CLEAR); BACTERIA, URINE AUTO 1+ (NEGATIVE); BILIRUBIN, URINE AUTO NEGATIVE (NEGATIVE); BLOOD, URINE BLOOD NEGATIVE (NEGATIVE); COLOR, URINE YELLOW (YELLOW); GLUCOSE, URINE (UA) AUTO NEGATIVE (NEGATIVE); KETONE, URINE AUTO NEGATIVE (NEGATIVE); LEUKOCYTE ESTERASE, URINE AUTO TRACE (NEGATIVE); MUCUS, URINE SMALL (NEGATIVE); NITRITE, URINE AUTO NEGATIVE (NEGATIVE); PROTEIN, URINE AUTO NEGATIVE (NEGATIVE); RBC, URINE AUTO 1 /HPF (0-3); SPECIFIC GRAVITY URINE AUTO 1.019 (1.002-1.035); SQUAMOUS EPITHELIAL CELL UR AU 12 /HPF (0-6); UROBILINOGEN, URINE AUTO 0.2 mg/dL (0.0-2.0); WBC, URINE AUTO 5 /HPF (0-3)
[2022-09-02 18:58] LABS: RSV AMPLIFICATION NEGATIVE (NEGATIVE)
[2022-09-02 18:59] LABS: LIPASE 27 U/L (12-53)
[2022-09-02 19:01] LABS: ALBUMIN 3.5 G/DL (3.2-5.2); ALKALINE PHOSPHATASE 81 U/L (46-116); ALT/SGPT 13 U/L (7.0-40); AST/SGOT 17 U/L (<34); BILIRUBIN,DIRECT < 0.1 MG/DL (<0.4); BILIRUBIN,TOTAL < 0.2 MG/DL (0.3-1.2); BLOOD UREA NITROGEN 12 MG/DL (9-23); CARBON DIOXIDE LEVEL 27 MMOL/L (20-31); CHLORIDE LEVEL 104 MMOL/L (98-107); CK-MB VALUE MASS < 1.0 NG/ML (<3.6); CPK CREATINE PHOSPHOKINASE 71 U/L (34-145); CREATININE FOR GFR 0.62 MG/DL (0.55-1.30); GLOMERULAR FILTRATION RATE > 60.0 (>60); GLUCOSE, FASTING 100 MG/DL (60-100); HCG, SERUM QUANTITATIVE < 2.6 MIU/ML (<4.2); POTASSIUM SERUM 4.4 MMOL/L (3.5-5.1); SODIUM LEVEL 137 MMOL/L (136-145); TOTAL PROTEIN 6.6 G/DL (5.7-8.2)
[2022-09-02] MEDS ORDERED: ONDA4TAB6 PO (20:19)
[2022-09-02 20:27] VITALS: BP 124/79
== END 2022-09-02 20:47 | disposition home or self-care (01) ==
LOC: M ED 17:24
DX: U07.1 COVID-19 (principal); R11.2 Nausea with vomiting, unspecified; I10 Essential (primary) hypertension; F32.A Depression, unspecified; F41.9 Anxiety disorder, unspecified; F31.9 Bipolar disorder, unspecified; Z88.8 Allergy status to other drugs, medicaments and biological substances; Z79.899 Other long term (current) drug therapy
CPT/HCPCS: 71045; 80048; 80076; 81001; 82550; 82553; 83690; 83880; 84702; 85025; 87631; 93005; 96374; 96375; 99284; J0131; J1100; J2405

== ENCOUNTER → 2022-09-14 | Outpatient (CLI) | payer OTHER | LOC: M LAB 15:22 | PROVIDERS: ATTEND Surgery | DX: F18.10 Inhalant abuse, uncomplicated (principal); F17.210 Nicotine dependence, cigarettes, uncomplicated | CPT/HCPCS: 36415; G0480 ==

== ENCOUNTER 2022-10-10 11:25 | Day surgery (SDC) | payer OTHER ==
[~2022-10-10] VITALS: Ht 157.5 cm; Wt 123.8 kg
[~2022-10-10 11:25] MED LIST changes: +ALBU8.5H INH; +FLUO10CA18 PO; -LEXA1TAB; +NS 1,000 ML IV ONE
[2022-10-10] MEDS ORDERED: propofoL 200 MG/20 ML VIAL As Ordered ONE (13:58)
[2022-10-10] MEDS ORDERED: fentaNYL 100 MCG/2 ML INJECTION As Ordered ONE (13:59)
[2022-10-10] MEDS ORDERED: LIDOCAINE 2% 100MG/5ML SDV (FOR ANES.) As Ordered ONE (14:03)
[2022-10-10 14:42] VITALS: BP 151/88
== END 2022-10-10 14:48 | disposition home or self-care (01) ==
LOC: M OPP 11:25
PROVIDERS: ATTEND Internal Medicine Gastroenterology
DX: Z01.810 Encounter for preprocedural cardiovascular examination (principal); E66.01 Morbid (severe) obesity due to excess calories; K22.89 Other specified disease of esophagus; K29.70 Gastritis, unspecified, without bleeding; Z79.51 Long term (current) use of inhaled steroids; Z79.890 Hormone replacement therapy; Z79.899 Other long term (current) drug therapy; Z88.1 Allergy status to other antibiotic agents; Z88.8 Allergy status to other drugs, medicaments and biological substances
CPT/HCPCS: 43239; 88305; J3010

== ENCOUNTER → 2022-10-13 | Outpatient (REF) | payer OTHER ==
[~2022-10-13] MED LIST changes: +CARA1TAB6 PO; -NS 1,000 ML IV ONE; +PROT1TAB2 PO
[2022-10-13 17:05] LABS: HEMATOCRIT 37.5 % (36.0-47.0); HEMOGLOBIN 11.9 g/dl (12.0-15.5); MEAN CORPUSCULAR HEMOGLOBIN 26.2 pg (27.0-33.0); MEAN CORPUSCULAR HGB CONC 31.7 g/dl (32.0-36.5); MEAN CORPUSCULAR VOLUME 82.4 fl (80.0-96.0); PLATELET COUNT, AUTOMATED 317 10^3/uL (150-450); RED BLOOD COUNT 4.55 10^6/uL (4.00-5.40); WHITE BLOOD COUNT 7.5 10^3/uL (4.0-10.0)
[2022-10-13 17:08] LABS: APPEARANCE, URINE CLOUDY (CLEAR); BACTERIA, URINE AUTO 1+ (NEGATIVE); BILIRUBIN, URINE AUTO NEGATIVE (NEGATIVE); BLOOD, URINE BLOOD 1+ (NEGATIVE); COLOR, URINE YELLOW (YELLOW); GLUCOSE, URINE (UA) AUTO NEGATIVE (NEGATIVE); KETONE, URINE AUTO NEGATIVE (NEGATIVE); LEUKOCYTE ESTERASE, URINE AUTO NEGATIVE (NEGATIVE); MUCUS, URINE SMALL (NEGATIVE); NITRITE, URINE AUTO NEGATIVE (NEGATIVE); PROTEIN, URINE AUTO NEGATIVE (NEGATIVE); RBC, URINE AUTO 1 /HPF (0-3); SQUAMOUS EPITHELIAL CELL UR AU 7 /HPF (0-6); UROBILINOGEN, URINE AUTO 0.2 mg/dL (0.0-2.0); WBC, URINE AUTO 12 /HPF (0-3)
[2022-10-13 17:25] LABS: ALBUMIN 3.3 G/DL (3.2-5.2); ALKALINE PHOSPHATASE 74 U/L (46-116); ALT/SGPT 12 U/L (7.0-40); AST/SGOT 15 U/L (<34); BILIRUBIN,TOTAL 0.3 MG/DL (0.3-1.2); BLOOD UREA NITROGEN 13 MG/DL (9-23); CALCIUM LEVEL 8.7 MG/DL (8.5-10.1); CARBON DIOXIDE LEVEL 27 MMOL/L (20-31); CHLORIDE LEVEL 105 MMOL/L (98-107); CHOLESTEROL LEVEL 171 MG/DL (<200); CHOLESTEROL RISK RATIO 4.91 (<5); CREATININE FOR GFR 0.64 MG/DL (0.55-1.30); GLOMERULAR FILTRATION RATE > 60.0 (>60); GLUCOSE, FASTING 150 MG/DL (60-100); HDL CHOLESTEROL 34.8 MG/DL (>40); LDL CHOLESTEROL 103.8 MG/DL (<100); NON-HDL-C 136.2 MG/DL; POTASSIUM SERUM 4.3 MMOL/L (3.5-5.1); SODIUM LEVEL 138 MMOL/L (136-145); TOTAL PROTEIN 6.3 G/DL (5.7-8.2); TRIGLYCERIDES LEVEL 162 MG/DL (<150)
[2022-10-13 17:26] LABS: THYROID STIMULATING HORMONE 1.704 uIU/ML (0.55-4.78)
== END ==
LOC: M LAB REF 16:21
PROVIDERS: ATTEND Physician Assistant
DX: E03.9 Hypothyroidism, unspecified (principal); I10 Essential (primary) hypertension; R07.9 Chest pain, unspecified; Z82.41 Family history of sudden cardiac death; N39.46 Mixed incontinence

== ENCOUNTER 2022-10-15 09:44 | Emergency (ER) | payer OTHER ==
[~2022-10-15] VITALS: Ht 157.5 cm; Wt 122.7 kg
[~2022-10-15 09:44] MED LIST changes: -CARA1TAB6 PO; -PROT1TAB2 PO
[2022-10-15 10:33] LABS: BASO # 0.1 10^3/uL (0.0-0.2); BASO % 0.6 % (0.0-1.0); EOS # 0.1 10^3/uL (0.0-0.5); EOS % 1.1 % (0.0-3.0); HEMATOCRIT 38.8 % (36.0-47.0); HEMOGLOBIN 12.6 g/dl (12.0-15.5); LYMPH # 2.6 10^3/uL (1.5-5.0); LYMPH % 29.1 % (24.0-44.0); MEAN CORPUSCULAR HEMOGLOBIN 26.1 pg (27.0-33.0); MEAN CORPUSCULAR HGB CONC 32.5 g/dl (32.0-36.5); MEAN CORPUSCULAR VOLUME 80.3 fl (80.0-96.0); MONO # 0.6 10^3/uL (0.0-0.8); MONO % 6.2 % (2.0-8.0); NEUTROPHILS # 5.6 10^3/uL (1.5-8.5); NEUTROPHILS % 62.7 % (36.0-66.0); PLATELET COUNT, AUTOMATED 369 10^3/uL (150-450); RED BLOOD COUNT 4.83 10^6/uL (4.00-5.40); WHITE BLOOD COUNT 8.9 10^3/uL (4.0-10.0)
[2022-10-15 10:57] LABS: CK-MB VALUE MASS < 1.0 NG/ML (<3.6); LIPASE 27 U/L (12-53)
[2022-10-15 10:58] LABS: HCG, SERUM QUALITATIVE NEGATIVE (NEGATIVE)
[2022-10-15 10:59] LABS: CPK CREATINE PHOSPHOKINASE 84 U/L (34-145); MB/CK RELATIVE INDEX 1.19 (< OR =4)
[2022-10-15 11:01] LABS: FREE T4 1.12 NG/DL (0.89-1.76)
[2022-10-15 11:04] LABS: ALBUMIN 3.5 G/DL (3.2-5.2); ALKALINE PHOSPHATASE 79 U/L (46-116); ALT/SGPT 12 U/L (7.0-40); AST/SGOT 17 U/L (<34); BILIRUBIN,DIRECT 0.1 MG/DL (<0.4); BILIRUBIN,TOTAL 0.3 MG/DL (0.3-1.2); BLOOD UREA NITROGEN 12 MG/DL (9-23); CALCIUM LEVEL 9.2 MG/DL (8.5-10.1); CARBON DIOXIDE LEVEL 24 MMOL/L (20-31); CHLORIDE LEVEL 104 MMOL/L (98-107); CREATININE FOR GFR 0.64 MG/DL (0.55-1.30); GLOMERULAR FILTRATION RATE > 60.0 (>60); GLUCOSE, FASTING 154 MG/DL (60-100); POTASSIUM SERUM 4.5 MMOL/L (3.5-5.1); SODIUM LEVEL 137 MMOL/L (136-145); TOTAL PROTEIN 6.7 G/DL (5.7-8.2)
[2022-10-15] MEDS ORDERED: ONDANSETRON 4MG 2ML VIAL IV ONE (11:55)
[2022-10-15] MEDS ORDERED: GI COCKTAIL 50ML BTL(HYOSCYAMINE/MAALOX/LIDOCAINE VISCOUS)(1:3:1) PO ONE (11:55)
[2022-10-15 12:01] LABS: CK-MB VALUE MASS < 1.0 NG/ML (<3.6)
[2022-10-15 12:06] LABS: CPK CREATINE PHOSPHOKINASE 85 U/L (34-145); MB/CK RELATIVE INDEX 1.17 (< OR =4)
[2022-10-15] MEDS ORDERED: CARA1TAB6 PO (12:34)
[2022-10-15] MEDS ORDERED: PROT1TAB2 PO (12:34)
[2022-10-15 12:43] VITALS: BP 116/70
== END 2022-10-15 13:14 | disposition home or self-care (01) ==
LOC: M ED 09:44
DX: K29.00 Acute gastritis without bleeding (principal); K21.00 Gastro-esophageal reflux disease with esophagitis, without bleeding; I10 Essential (primary) hypertension; F31.9 Bipolar disorder, unspecified; F32.A Depression, unspecified; E66.01 Morbid (severe) obesity due to excess calories; Z88.8 Allergy status to other drugs, medicaments and biological substances; Z79.899 Other long term (current) drug therapy
CPT/HCPCS: 71045; 80048; 80076; 82550; 82553; 83690; 84439; 84443; 84703; 85025; 93005; 93041; 94760; 96374; 99285; J2405

== ENCOUNTER 2022-11-17 13:31 | Emergency (ER) | payer OTHER ==
[~2022-11-17] VITALS: Ht 157.5 cm; Wt 121.8 kg
[~2022-11-17 13:31] MED LIST changes: +CARA1TAB6 PO; +PROT1TAB2 PO
[2022-11-17] MEDS ORDERED: LISI5TAB11 (13:47)
[2022-11-17] MEDS ORDERED: GLIP5TAB8 PO (13:47)
[2022-11-17] MEDS ORDERED: PANTOPRAZOLE 40MG VIAL IV ONE (14:20)
[2022-11-17] MEDS ORDERED: SUCRALFATE 1 GM TAB PO ONE (14:20)
[2022-11-17] MEDS: METOCLOPRAMIDE INJ 10MG/2ML VIAL IV ONE ×2 (14:20→14:31)
[2022-11-17 14:53] LABS: BASO # 0.1 10^3/uL (0.0-0.2); BASO % 0.7 % (0.0-1.0); EOS # 0.1 10^3/uL (0.0-0.5); EOS % 1.1 % (0.0-3.0); HEMATOCRIT 37.9 % (36.0-47.0); HEMOGLOBIN 11.7 g/dl (12.0-15.5); LYMPH # 3.2 10^3/uL (1.5-5.0); LYMPH % 31.4 % (24.0-44.0); MEAN CORPUSCULAR HEMOGLOBIN 25.1 pg (27.0-33.0); MEAN CORPUSCULAR HGB CONC 30.9 g/dl (32.0-36.5); MEAN CORPUSCULAR VOLUME 81.2 fl (80.0-96.0); MONO # 0.9 10^3/uL (0.0-0.8); MONO % 8.5 % (2.0-8.0); NEUTROPHILS # 5.8 10^3/uL (1.5-8.5); PLATELET COUNT, AUTOMATED 352 10^3/uL (150-450); RED BLOOD COUNT 4.67 10^6/uL (4.00-5.40)
[2022-11-17 15:23] LABS: LIPASE 27 U/L (12-53)
[2022-11-17 15:25] LABS: ALBUMIN 3.5 G/DL (3.2-5.2); ALKALINE PHOSPHATASE 74 U/L (46-116); ALT/SGPT < 9 U/L (7.0-40); AST/SGOT 12 U/L (<34); BILIRUBIN,DIRECT < 0.1 MG/DL (<0.4); BILIRUBIN,TOTAL 0.2 MG/DL (0.3-1.2); BLOOD UREA NITROGEN 13 MG/DL (9-23); CALCIUM LEVEL 8.7 MG/DL (8.5-10.1); CARBON DIOXIDE LEVEL 28 MMOL/L (20-31); CHLORIDE LEVEL 105 MMOL/L (98-107); CREATININE FOR GFR 0.71 MG/DL (0.55-1.30); GLOMERULAR FILTRATION RATE > 60.0 (>60); GLUCOSE, FASTING 103 MG/DL (60-100); POTASSIUM SERUM 4.3 MMOL/L (3.5-5.1); SODIUM LEVEL 138 MMOL/L (136-145); TOTAL PROTEIN 6.2 G/DL (5.7-8.2)
[2022-11-17 16:15] LABS: HEMOGLOBIN A1c 6.7 % (4.0-6.0)
[2022-11-17] MEDS ORDERED: PROT1TAB2 PO (16:52)
[2022-11-17] MEDS ORDERED: CARA1TAB6 PO (16:52)
[2022-11-17 16:58] VITALS: BP 139/81; TEMP 96.5; O2SAT 98
== END 2022-11-17 17:25 | disposition home or self-care (01) ==
LOC: M ED 13:31 → EDBD 13:31 → M ED 17:25
DX: K29.00 Acute gastritis without bleeding (principal); E11.9 Type 2 diabetes mellitus without complications; I10 Essential (primary) hypertension; K21.9 Gastro-esophageal reflux disease without esophagitis; R00.2 Palpitations; F31.9 Bipolar disorder, unspecified; Z87.891 Personal history of nicotine dependence; Z88.8 Allergy status to other drugs, medicaments and biological substances; Z79.899 Other long term (current) drug therapy
CPT/HCPCS: 80048; 80076; 83036; 83690; 85025; 93041; 96374; 96375; 99284; C9113

== ENCOUNTER → 2022-12-27 | Outpatient (REF) | payer OTHER ==
[~2022-12-27] MED LIST changes: +GLIP5TAB8 PO; +LISI5TAB11
[2022-12-27 17:25] LABS: CREATININE, URINE 199.6 MG/DL
[2022-12-27 17:26] LABS: MAU/CREAT RATIO 8.5 MCG/MG (0.0-30.0)
== END ==
LOC: M LAB REF 16:11
PROVIDERS: ATTEND Physician Assistant
DX: E11.9 Type 2 diabetes mellitus without complications (principal)

== ENCOUNTER 2023-04-21 18:48 | Emergency (ER) | payer OTHER ==
[~2023-04-21] VITALS: Ht 157.5 cm; Wt 103.2 kg
[~2023-04-21 18:48] MED LIST changes: +GLIP5TAB17 PO; -GLIP5TAB8 PO
[2023-04-21 19:49] VITALS: TEMP 98.3
[2023-04-21 20:45] VITALS: BP 101/64; O2SAT 97
[2023-04-21 21:26] LABS: BASO # 0.1 10^3/uL (0.0-0.2); BASO % 0.5 % (0.0-1.0); EOS # 0.1 10^3/uL (0.0-0.5); EOS % 0.6 % (0.0-3.0); HEMATOCRIT 39.2 % (36.0-47.0); HEMOGLOBIN 12.5 g/dl (12.0-15.5); LYMPH # 3.9 10^3/uL (1.5-5.0); LYMPH % 29.8 % (24.0-44.0); MEAN CORPUSCULAR HEMOGLOBIN 25.8 pg (27.0-33.0); MEAN CORPUSCULAR HGB CONC 31.9 g/dl (32.0-36.5); MONO # 0.8 10^3/uL (0.0-0.8); MONO % 6.3 % (2.0-8.0); NEUTROPHILS # 8.1 10^3/uL (1.5-8.5); NEUTROPHILS % 62.6 % (36.0-66.0); PLATELET COUNT, AUTOMATED 292 10^3/uL (150-450); RED BLOOD COUNT 4.84 10^6/uL (4.00-5.40)
[2023-04-21 21:52] LABS: BLOOD UREA NITROGEN 14 MG/DL (9-23); CALCIUM LEVEL 9.2 MG/DL (8.5-10.1); CARBON DIOXIDE LEVEL 24 MMOL/L (20-31); CHLORIDE LEVEL 108 MMOL/L (98-107); CREATININE FOR GFR 0.53 MG/DL (0.55-1.30); GLOMERULAR FILTRATION RATE > 60.0 (>60); GLUCOSE, FASTING 105 MG/DL (60-100); MAGNESIUM LEVEL 1.8 MG/DL (1.8-2.4); PHOSPHORUS LEVEL 3.3 MG/DL (2.5-4.9); POTASSIUM SERUM 4.2 MMOL/L (3.5-5.1); SODIUM LEVEL 142 MMOL/L (136-145)
== END 2023-04-21 22:11 | disposition home or self-care (01) ==
LOC: EDBD 18:48 → M ED 18:48
DX: S06.300A Unspecified focal traumatic brain injury without loss of consciousness, initial encounter (principal); Y04.8XXA Assault by other bodily force, initial encounter; Y92.9 Unspecified place or not applicable; K21.9 Gastro-esophageal reflux disease without esophagitis; F32.A Depression, unspecified; I10 Essential (primary) hypertension; E11.9 Type 2 diabetes mellitus without complications; Z88.8 Allergy status to other drugs, medicaments and biological substances; Z79.890 Hormone replacement therapy; Z79.899 Other long term (current) drug therapy

== ENCOUNTER 2023-04-27 06:50 | Emergency (ER) | payer OTHER ==
[~2023-04-27] VITALS: Ht 157.5 cm; Wt 103.7 kg
[2023-04-27 08:53] LABS: HEMATOCRIT 37.8 % (36.0-47.0); HEMOGLOBIN 11.8 g/dl (12.0-15.5); MEAN CORPUSCULAR HEMOGLOBIN 25.6 pg (27.0-33.0); MEAN CORPUSCULAR HGB CONC 31.2 g/dl (32.0-36.5); PLATELET COUNT, AUTOMATED 261 10^3/uL (150-450); RED BLOOD COUNT 4.61 10^6/uL (4.00-5.40); WHITE BLOOD COUNT 6.7 10^3/uL (4.0-10.0)
[2023-04-27 09:24] LABS: THYROID STIMULATING HORMONE 3.257 uIU/ML (0.55-4.78)
[2023-04-27 09:25] LABS: FREE T4 0.83 NG/DL (0.89-1.76)
[2023-04-27 09:49] VITALS: BP 134/79; TEMP 97.1; O2SAT 100
== END 2023-04-27 09:50 | disposition home or self-care (01) ==
LOC: M ED 06:50
DX: B34.9 Viral infection, unspecified (principal); I10 Essential (primary) hypertension; E03.9 Hypothyroidism, unspecified; Z98.84 Bariatric surgery status; Z88.8 Allergy status to other drugs, medicaments and biological substances; F17.200 Nicotine dependence, unspecified, uncomplicated; Z79.890 Hormone replacement therapy; Z79.899 Other long term (current) drug therapy; Z11.52 Encounter for screening for COVID-19

== ENCOUNTER 2023-05-14 16:19 | Emergency (ER) | payer OTHER ==
[~2023-05-14] VITALS: Ht 154.9 cm; Wt 101.3 kg
[2023-05-14 16:33] VITALS: BP 120/64; TEMP 99.1; O2SAT 97
[2023-05-14 17:33] LABS: RSV AMPLIFICATION POSITIVE (NEGATIVE)
== END 2023-05-14 20:01 | disposition left against medical advice (07) ==
LOC: M ED 16:19
DX: Z53.21 Procedure and treatment not carried out due to patient leaving prior to being seen by health care provider (principal)

== ENCOUNTER → 2023-06-05 | Outpatient (CLI) | payer OTHER ==
[2023-06-05 12:14] LABS: HEMATOCRIT 41.3 % (36.0-47.0)
[2023-06-05 12:15] LABS: HEMATOCRIT 41.7 % (36.0-47.0); HEMOGLOBIN 12.9 g/dl (12.0-15.5); MEAN CORPUSCULAR HEMOGLOBIN 25.2 pg (27.0-33.0); MEAN CORPUSCULAR HGB CONC 30.9 g/dl (32.0-36.5); MEAN CORPUSCULAR VOLUME 81.6 fl (80.0-96.0); PLATELET COUNT, AUTOMATED 331 10^3/uL (150-450); RED BLOOD COUNT 5.11 10^6/uL (4.00-5.40); WHITE BLOOD COUNT 8.9 10^3/uL (4.0-10.0)
[2023-06-05 12:36] LABS: ALBUMIN 3.9 G/DL (3.2-5.2); ALKALINE PHOSPHATASE 93 U/L (46-116); ALT/SGPT 11 U/L (7.0-40); AST/SGOT 13 U/L (<34); BILIRUBIN,TOTAL 0.3 MG/DL (0.3-1.2); BLOOD UREA NITROGEN 10 MG/DL (9-23); CALCIUM LEVEL 9.5 MG/DL (8.5-10.1); CARBON DIOXIDE LEVEL 28 MMOL/L (20-31); CHLORIDE LEVEL 107 MMOL/L (98-107); CREATININE FOR GFR 0.62 MG/DL (0.55-1.30); GLOMERULAR FILTRATION RATE > 60.0 (>60); GLUCOSE, FASTING 103 MG/DL (60-100); PHOSPHORUS LEVEL 3.8 MG/DL (2.5-4.9); POTASSIUM SERUM 4.3 MMOL/L (3.5-5.1); SODIUM LEVEL 138 MMOL/L (136-145); TOTAL PROTEIN 6.7 G/DL (5.7-8.2)
[2023-06-05 12:37] LABS: FERRITIN 20.2 NG/ML (7.3-270.7); IRON (FE) 62 UG/DL (50-170)
[2023-06-05 12:38] LABS: TOTAL 25(OH) VITAMIN D 17.2 NG/ML (20.0-100.0); VITAMIN B12 LEVEL 374 PG/ML (211-911)
== END ==
LOC: M LAB 09:40
PROVIDERS: ATTEND Physician Assistant Surgical
DX: K91.2 Postsurgical malabsorption, not elsewhere classified (principal); Z98.84 Bariatric surgery status; Z86.39 Personal history of other endocrine, nutritional and metabolic disease

== ENCOUNTER 2023-06-17 05:45 | Emergency (ER) | payer OTHER ==
[~2023-06-17] VITALS: Ht 154.9 cm; Wt 100.0 kg
[2023-06-17] MEDS ORDERED: NS 1,000 ML IV ONE (08:05)
[2023-06-17] MEDS: ONDANSETRON 4MG 2ML VIAL IV ONE ×2 (08:05→08:16)
[2023-06-17] MEDS ORDERED: PANTOPRAZOLE 40MG VIAL IV ONE (08:05)
[2023-06-17 08:22] LABS: BASO # 0.1 10^3/uL (0.0-0.2); BASO % 0.6 % (0.0-1.0); EOS # 0.1 10^3/uL (0.0-0.5); EOS % 0.9 % (0.0-3.0); HEMATOCRIT 40.6 % (36.0-47.0); HEMOGLOBIN 12.9 g/dl (12.0-15.5); LYMPH # 2.9 10^3/uL (1.5-5.0); LYMPH % 36.7 % (24.0-44.0); MEAN CORPUSCULAR HEMOGLOBIN 25.6 pg (27.0-33.0); MEAN CORPUSCULAR HGB CONC 31.8 g/dl (32.0-36.5); MEAN CORPUSCULAR VOLUME 80.6 fl (80.0-96.0); MONO # 0.6 10^3/uL (0.0-0.8); MONO % 7.6 % (2.0-8.0); NEUTROPHILS # 4.2 10^3/uL (1.5-8.5); NEUTROPHILS % 54.1 % (36.0-66.0); PLATELET COUNT, AUTOMATED 311 10^3/uL (150-450); RED BLOOD COUNT 5.04 10^6/uL (4.00-5.40); WHITE BLOOD COUNT 7.8 10^3/uL (4.0-10.0)
[2023-06-17 08:53] LABS: LIPASE 27 U/L (12-53)
[2023-06-17 08:55] LABS: ALBUMIN 3.5 G/DL (3.2-5.2); ALKALINE PHOSPHATASE 79 U/L (46-116); ALT/SGPT 10 U/L (7.0-40); AST/SGOT 14 U/L (<34); BILIRUBIN,DIRECT < 0.1 MG/DL (<0.4); BILIRUBIN,TOTAL 0.2 MG/DL (0.3-1.2); BLOOD UREA NITROGEN 11 MG/DL (9-23); CARBON DIOXIDE LEVEL 29 MMOL/L (20-31); CHLORIDE LEVEL 109 MMOL/L (98-107); CREATININE FOR GFR 0.61 MG/DL (0.55-1.30); GLOMERULAR FILTRATION RATE > 60.0 (>60); GLUCOSE, FASTING 116 MG/DL (60-100); POTASSIUM SERUM 4.4 MMOL/L (3.5-5.1); SODIUM LEVEL 142 MMOL/L (136-145); TOTAL PROTEIN 6.3 G/DL (5.7-8.2)
[2023-06-17] MEDS ORDERED: SUCRALFATE SUSP 1GM/10ML UD PO ONE (09:15)
[2023-06-17] MEDS ORDERED: CARA1TAB6 PO (10:22)
[2023-06-17] MEDS ORDERED: PROT1TAB2 PO (10:22)
[2023-06-17] MEDS ORDERED: ONDA4TAB6 PO (10:22)
[2023-06-17 10:23] VITALS: BP 117/80; TEMP 97; O2SAT 97
== END 2023-06-17 10:30 | disposition home or self-care (01) ==
LOC: M ED 05:45
DX: K29.70 Gastritis, unspecified, without bleeding (principal); F17.210 Nicotine dependence, cigarettes, uncomplicated; Z88.8 Allergy status to other drugs, medicaments and biological substances; Z79.899 Other long term (current) drug therapy
CPT/HCPCS: 74021; 76705; 80047; 80048; 80076; 83690; 84702; 85025; 96374; 99284; C9113

== ENCOUNTER → 2023-07-12 | Outpatient (REF) | payer OTHER ==
[2023-07-12 13:02] LABS: BASO # 0.1 10^3/uL (0.0-0.2); BASO % 0.6 % (0.0-1.0); EOS # 0.1 10^3/uL (0.0-0.5); EOS % 1.1 % (0.0-3.0); HEMATOCRIT 41.9 % (36.0-47.0); HEMOGLOBIN 13.2 g/dl (12.0-15.5); LYMPH # 2.9 10^3/uL (1.5-5.0); LYMPH % 33.5 % (24.0-44.0); MEAN CORPUSCULAR HEMOGLOBIN 25.7 pg (27.0-33.0); MEAN CORPUSCULAR HGB CONC 31.5 g/dl (32.0-36.5); MEAN CORPUSCULAR VOLUME 81.7 fl (80.0-96.0); MONO # 0.7 10^3/uL (0.0-0.8); MONO % 7.6 % (2.0-8.0); NEUTROPHILS % 56.9 % (36.0-66.0); PLATELET COUNT, AUTOMATED 361 10^3/uL (150-450); RED BLOOD COUNT 5.13 10^6/uL (4.00-5.40); WHITE BLOOD COUNT 8.8 10^3/uL (4.0-10.0)
[2023-07-12 13:36] LABS: THYROID STIMULATING HORMONE 3.202 uIU/ML (0.55-4.78)
[2023-07-12 13:37] LABS: TOTAL 25(OH) VITAMIN D 9.3 NG/ML (20.0-100.0)
[2023-07-12 13:39] LABS: MAGNESIUM LEVEL 1.8 MG/DL (1.8-2.4)
[2023-07-12 13:40] LABS: FOLATE 13.1 NG/ML (>5.4)
== END ==
LOC: M LAB REF 11:42
PROVIDERS: ATTEND Physician Assistant
DX: E55.9 Vitamin D deficiency, unspecified (principal); F41.8 Other specified anxiety disorders; Z98.84 Bariatric surgery status

== ENCOUNTER 2023-07-19 08:10 | Emergency (ER) | payer OTHER ==
[~2023-07-19] VITALS: Ht 157.5 cm; Wt 95.5 kg
[2023-07-19] MEDS ORDERED: HYDR50TA70 (08:26)
[2023-07-19] MEDS ORDERED: SERT50TA29 (08:26)
[2023-07-19 09:15] LABS: BASO # 0.1 10^3/uL (0.0-0.2); BASO % 0.6 % (0.0-1.0); EOS # 0.1 10^3/uL (0.0-0.5); EOS % 0.6 % (0.0-3.0); HEMATOCRIT 39.6 % (36.0-47.0); HEMOGLOBIN 12.8 g/dl (12.0-15.5); LYMPH # 2.7 10^3/uL (1.5-5.0); LYMPH % 32.4 % (24.0-44.0); MEAN CORPUSCULAR HEMOGLOBIN 25.7 pg (27.0-33.0); MEAN CORPUSCULAR HGB CONC 32.3 g/dl (32.0-36.5); MEAN CORPUSCULAR VOLUME 79.4 fl (80.0-96.0); MONO # 0.6 10^3/uL (0.0-0.8); MONO % 7.4 % (2.0-8.0); NEUTROPHILS # 4.8 10^3/uL (1.5-8.5); NEUTROPHILS % 58.6 % (36.0-66.0); PLATELET COUNT, AUTOMATED 292 10^3/uL (150-450); RED BLOOD COUNT 4.99 10^6/uL (4.00-5.40); WHITE BLOOD COUNT 8.2 10^3/uL (4.0-10.0)
[2023-07-19 09:43] LABS: LIPASE 35 U/L (12-53)
[2023-07-19 09:45] LABS: CPK CREATINE PHOSPHOKINASE 46 U/L (34-145)
[2023-07-19 09:46] LABS: ALBUMIN 3.8 G/DL (3.2-5.2); ALKALINE PHOSPHATASE 101 U/L (46-116); ALT/SGPT < 9 U/L (7.0-40); AST/SGOT 11 U/L (<34); BILIRUBIN,DIRECT 0.1 MG/DL (<0.4); BILIRUBIN,TOTAL 0.4 MG/DL (0.3-1.2); BLOOD UREA NITROGEN 16 MG/DL (9-23); CALCIUM LEVEL 9.3 MG/DL (8.5-10.1); CARBON DIOXIDE LEVEL 26 MMOL/L (20-31); CHLORIDE LEVEL 106 MMOL/L (98-107); CK-MB VALUE MASS < 1.0 NG/ML (<3.6); CREATININE FOR GFR 0.57 MG/DL (0.55-1.30); GLOMERULAR FILTRATION RATE > 60.0 (>60); GLUCOSE, FASTING 101 MG/DL (60-100); MB/CK RELATIVE INDEX 2.17 (< OR =4); POTASSIUM SERUM 4.2 MMOL/L (3.5-5.1); SODIUM LEVEL 136 MMOL/L (136-145); TOTAL PROTEIN 6.9 G/DL (5.7-8.2)
[2023-07-19 09:48] LABS: FREE T4 0.99 NG/DL (0.89-1.76); THYROID STIMULATING HORMONE 3.749 uIU/ML (0.55-4.78)
[2023-07-19 10:00] VITALS: BP 108/66
[2023-07-19 10:03] LABS: HCG, SERUM QUALITATIVE NEGATIVE (NEGATIVE)
[2023-07-19] MEDS ORDERED: ISOVUE-370 76% 100ML VIAL As Ordered ONE (10:20)
[2023-07-19] MEDS: SUCRALFATE SUSP 1GM/10ML UD PO ONE (10:56)
[2023-07-19 11:45] VITALS: TEMP 98; O2SAT 98
== END 2023-07-19 11:57 | disposition home or self-care (01) ==
LOC: M ED 08:10
DX: R07.9 Chest pain, unspecified (principal); K21.9 Gastro-esophageal reflux disease without esophagitis; G47.30 Sleep apnea, unspecified; F41.9 Anxiety disorder, unspecified; F32.A Depression, unspecified; Z98.84 Bariatric surgery status; F17.200 Nicotine dependence, unspecified, uncomplicated; F31.9 Bipolar disorder, unspecified; Z79.899 Other long term (current) drug therapy; Z88.0 Allergy status to penicillin
CPT/HCPCS: 36415; 71046; 71275; 80048; 80076; 82550; 82553; 83690; 84439; 84443; 84703; 85025; 93005; 99284; Q9967

== ENCOUNTER → 2023-09-21 | Outpatient (CLI) | payer OTHER ==
[~2023-09-21] MED LIST changes: +HYDR50TA70; +SERT50TA29
== END ==
LOC: M WHC 11:26
PROVIDERS: ATTEND Specialist
DX: N92.6 Irregular menstruation, unspecified (principal)

== ENCOUNTER 2023-11-26 12:35 | Emergency (ER) | payer OTHER ==
[~2023-11-26] VITALS: Ht 154.9 cm; Wt 92.7 kg
[~2023-11-26 12:35] MED LIST changes: +FLUO-290 PO; -FLUO10CA18 PO; +ONDA-282 PO; -ONDA4TAB6 PO
[2023-11-26 12:48] VITALS: TEMP 98.1
[2023-11-26 13:14] LABS: BASO # 0.1 10^3/uL (0.0-0.2); BASO % 0.7 % (0.0-1.0); EOS # 0.1 10^3/uL (0.0-0.5); HEMATOCRIT 33.5 % (36.0-47.0); HEMOGLOBIN 10.7 g/dl (12.0-15.5); LYMPH # 3.8 10^3/uL (1.5-5.0); LYMPH % 40.3 % (24.0-44.0); MEAN CORPUSCULAR HEMOGLOBIN 24.7 pg (27.0-33.0); MEAN CORPUSCULAR HGB CONC 31.9 g/dl (32.0-36.5); MEAN CORPUSCULAR VOLUME 77.4 fl (80.0-96.0); MONO # 0.7 10^3/uL (0.0-0.8); NEUTROPHILS # 4.8 10^3/uL (1.5-8.5); NEUTROPHILS % 50.7 % (36.0-66.0); PLATELET COUNT, AUTOMATED 404 10^3/uL (150-450); RED BLOOD COUNT 4.33 10^6/uL (4.00-5.40); WHITE BLOOD COUNT 9.4 10^3/uL (4.0-10.0)
[2023-11-26 13:28] LABS: INR 1.46; PROTHROMBIN TIME 17.2 SECONDS (12.5-14.5)
[2023-11-26 13:34] LABS: LIPASE 34 U/L (12-53)
[2023-11-26 13:35] LABS: CPK CREATINE PHOSPHOKINASE 67 U/L (34-145)
[2023-11-26 13:36] LABS: ALBUMIN 3.6 G/DL (3.2-5.2); ALKALINE PHOSPHATASE 101 U/L (46-116); ALT/SGPT 18 U/L (7.0-40); AST/SGOT 16 U/L (<34); BILIRUBIN,DIRECT < 0.1 MG/DL (<0.4); BILIRUBIN,TOTAL 0.2 MG/DL (0.3-1.2); BLOOD UREA NITROGEN 11 MG/DL (9-23); CALCIUM LEVEL 8.8 MG/DL (8.5-10.1); CARBON DIOXIDE LEVEL 25 MMOL/L (20-31); CHLORIDE LEVEL 108 MMOL/L (98-107); CK-MB VALUE MASS < 1.0 NG/ML (<3.6); GLOMERULAR FILTRATION RATE > 60.0 (>60); GLUCOSE, FASTING 83 MG/DL (60-100); MB/CK RELATIVE INDEX 1.49 (< OR =4); SODIUM LEVEL 138 MMOL/L (136-145); TOTAL PROTEIN 6.2 G/DL (5.7-8.2)
[2023-11-26] MEDS ORDERED: MAALOX 30 ML SUSP *UDC PO ONE (13:55)
[2023-11-26] MEDS ORDERED: PANTOPRAZOLE 40MG VIAL IV ONE (13:55)
[2023-11-26 14:21] VITALS: O2SAT 99
[2023-11-26] MEDS ORDERED: ISOVUE-370 76% 100ML VIAL As Ordered ONE (14:24)
[2023-11-26 14:31] VITALS: BP 113/69
== END 2023-11-26 14:46 | disposition left against medical advice (07) ==
LOC: EDBD 12:35 → M ED 12:35
DX: R07.9 Chest pain, unspecified (principal); K21.9 Gastro-esophageal reflux disease without esophagitis; E03.9 Hypothyroidism, unspecified; F17.210 Nicotine dependence, cigarettes, uncomplicated; Z88.8 Allergy status to other drugs, medicaments and biological substances; Z79.899 Other long term (current) drug therapy; Z53.9 Procedure and treatment not carried out, unspecified reason

== ENCOUNTER → 2023-12-21 | Outpatient (CLI) | payer OTHER ==
[~2023-12-21] MED LIST changes: +ABIL1TAB13 PO; +CHOL50TA8 PO; +CYAN-11 PO; +ISOVUE-370 76% 100ML VIAL As Ordered ONE; +THERTAB52 PO; +WELL100T2 PO
== END ==
LOC: M RAD 07:10
PROVIDERS: ATTEND Physician Assistant
DX: R07.9 Chest pain, unspecified (principal)
CPT/HCPCS: 71275; Q9967

== ENCOUNTER → 2023-12-24 | Outpatient (REF) | payer OTHER ==
[~2023-12-24] MED LIST changes: -ISOVUE-370 76% 100ML VIAL As Ordered ONE
[2023-12-24 17:18] LABS: BASO # 0.1 10^3/uL (0.0-0.2); BASO % 0.5 % (0.0-1.0); EOS # 0.1 10^3/uL (0.0-0.5); EOS % 0.9 % (0.0-3.0); HEMATOCRIT 37.7 % (36.0-47.0); HEMOGLOBIN 11.9 g/dl (12.0-15.5); LYMPH # 3.4 10^3/uL (1.5-5.0); LYMPH % 29.2 % (24.0-44.0); MEAN CORPUSCULAR HEMOGLOBIN 24.7 pg (27.0-33.0); MEAN CORPUSCULAR HGB CONC 31.6 g/dl (32.0-36.5); MEAN CORPUSCULAR VOLUME 78.2 fl (80.0-96.0); MONO # 0.9 10^3/uL (0.0-0.8); MONO % 7.7 % (2.0-8.0); NEUTROPHILS # 7.2 10^3/uL (1.5-8.5); NEUTROPHILS % 61.3 % (36.0-66.0); PLATELET COUNT, AUTOMATED 413 10^3/uL (150-450); RED BLOOD COUNT 4.82 10^6/uL (4.00-5.40); WHITE BLOOD COUNT 11.7 10^3/uL (4.0-10.0)
[2023-12-24 17:45] LABS: ALKALINE PHOSPHATASE 104 U/L (46-116); ALT/SGPT 15 U/L (7.0-40); AST/SGOT 18 U/L (<34); BILIRUBIN,TOTAL 0.2 MG/DL (0.3-1.2); BLOOD UREA NITROGEN 13 MG/DL (9-23); CALCIUM LEVEL 9.3 MG/DL (8.5-10.1); CARBON DIOXIDE LEVEL 27 MMOL/L (20-31); CHLORIDE LEVEL 105 MMOL/L (98-107); CHOLESTEROL LEVEL 199 MG/DL (<200); CHOLESTEROL RISK RATIO 3.79 (<5); CREATININE FOR GFR 0.68 MG/DL (0.55-1.30); GLOMERULAR FILTRATION RATE > 60.0 (>60); GLUCOSE, FASTING 82 MG/DL (60-100); HDL CHOLESTEROL 52.5 MG/DL (>40); IRON (FE) 33 UG/DL (50-170); LDL CHOLESTEROL 87.9 MG/DL (<100); NON-HDL-C 146.5 MG/DL; PERCENT SATURATION 7.5 % (13.2-45.0); POTASSIUM SERUM 4.3 MMOL/L (3.5-5.1); SODIUM LEVEL 137 MMOL/L (136-145); TOTAL IRON BINDING CAPACITY 440 UG/DL (250-425); TRIGLYCERIDES LEVEL 293 MG/DL (<150)
[2023-12-24 17:46] LABS: THYROID STIMULATING HORMONE 3.845 uIU/ML (0.55-4.78)
[2023-12-24 17:47] LABS: FERRITIN 3.3 NG/ML (7.3-270.7); TOTAL 25(OH) VITAMIN D 24.2 NG/ML (20.0-100.0)
[2023-12-24 17:50] LABS: HEMOGLOBIN A1c 5.6 % (4.0-6.0)
== END ==
LOC: M LAB REF 16:20
PROVIDERS: ATTEND Physician Assistant
DX: E66.9 Obesity, unspecified (principal); E55.9 Vitamin D deficiency, unspecified; D64.9 Anemia, unspecified

== ENCOUNTER → 2023-12-26 | Outpatient (REF) | payer OTHER ==
[2023-12-26 12:37] LABS: APPEARANCE, URINE HAZY (CLEAR); BACTERIA, URINE AUTO NEGATIVE (NEGATIVE); BILIRUBIN, URINE AUTO NEGATIVE (NEGATIVE); BLOOD, URINE BLOOD 1+ (NEGATIVE); COLOR, URINE YELLOW (YELLOW); GLUCOSE, URINE (UA) AUTO NEGATIVE (NEGATIVE); KETONE, URINE AUTO NEGATIVE (NEGATIVE); LEUKOCYTE ESTERASE, URINE AUTO NEGATIVE (NEGATIVE); MUCUS, URINE SMALL (NEGATIVE); NITRITE, URINE AUTO NEGATIVE (NEGATIVE); PROTEIN, URINE AUTO NEGATIVE (NEGATIVE); RBC, URINE AUTO 0 /HPF (0-3); SPECIFIC GRAVITY URINE AUTO 1.017 (1.002-1.035); SQUAMOUS EPITHELIAL CELL UR AU 4 /HPF (0-6); UROBILINOGEN, URINE AUTO 0.2 mg/dL (0.0-2.0); WBC, URINE AUTO 3 /HPF (0-3)
== END ==
LOC: M SMT 12:05
PROVIDERS: ATTEND Physician Assistant
DX: N39.46 Mixed incontinence (principal)

== ENCOUNTER 2023-12-29 14:27 | Emergency (ER) | payer OTHER ==
[~2023-12-29] VITALS: Ht 154.9 cm; Wt 94.9 kg
[2023-12-29 14:28] VITALS: BP 104/76; TEMP 98.9; O2SAT 97
== END 2023-12-29 19:02 | disposition left against medical advice (07) ==
LOC: M ED 14:27
DX: Z53.21 Procedure and treatment not carried out due to patient leaving prior to being seen by health care provider (principal)

== ENCOUNTER 2023-12-31 14:50 | Emergency (ER) | payer OTHER ==
[~2023-12-31] VITALS: Ht 154.9 cm; Wt 94.6 kg
[2023-12-31 14:50] VITALS: BP 132/81; TEMP 96.8; O2SAT 100
[2023-12-31 17:09] LABS: BASO # 0.1 10^3/uL (0.0-0.2); BASO % 0.6 % (0.0-1.0); EOS # 0.1 10^3/uL (0.0-0.5); EOS % 0.8 % (0.0-3.0); HEMOGLOBIN 11.6 g/dl (12.0-15.5); LYMPH # 4.7 10^3/uL (1.5-5.0); LYMPH % 33.6 % (24.0-44.0); MEAN CORPUSCULAR HEMOGLOBIN 24.5 pg (27.0-33.0); MEAN CORPUSCULAR HGB CONC 31.4 g/dl (32.0-36.5); MEAN CORPUSCULAR VOLUME 78.2 fl (80.0-96.0); MONO % 6.9 % (2.0-8.0); NEUTROPHILS # 8.1 10^3/uL (1.5-8.5); NEUTROPHILS % 57.7 % (36.0-66.0); PLATELET COUNT, AUTOMATED 439 10^3/uL (150-450); RED BLOOD COUNT 4.73 10^6/uL (4.00-5.40); WHITE BLOOD COUNT 14.1 10^3/uL (4.0-10.0)
[2023-12-31 17:35] LABS: LIPASE 38 U/L (12-53)
[2023-12-31 17:36] LABS: AMYLASE 46 U/L (30-118)
[2023-12-31 17:37] LABS: ALKALINE PHOSPHATASE 100 U/L (46-116); ALT/SGPT 13 U/L (7.0-40); AST/SGOT 13 U/L (<34); BILIRUBIN,DIRECT < 0.1 MG/DL (<0.4); BILIRUBIN,TOTAL < 0.2 MG/DL (0.3-1.2); BLOOD UREA NITROGEN 11 MG/DL (9-23); CALCIUM LEVEL 9.4 MG/DL (8.5-10.1); CARBON DIOXIDE LEVEL 28 MMOL/L (20-31); CHLORIDE LEVEL 108 MMOL/L (98-107); CREATININE FOR GFR 0.63 MG/DL (0.55-1.30); GLOMERULAR FILTRATION RATE > 60.0 (>60); GLUCOSE, FASTING 85 MG/DL (60-100); POTASSIUM SERUM 4.1 MMOL/L (3.5-5.1); SODIUM LEVEL 140 MMOL/L (136-145)
== END 2023-12-31 17:46 | disposition left against medical advice (07) ==
LOC: M ED 14:50
DX: Z53.21 Procedure and treatment not carried out due to patient leaving prior to being seen by health care provider (principal)

== ENCOUNTER 2024-01-27 16:07 | Emergency (ER) | payer OTHER ==
[~2024-01-27] VITALS: Ht 154.9 cm; Wt 96.5 kg
[2024-01-27 16:08] VITALS: BP 128/79; TEMP 98.2; O2SAT 100
[2024-01-27] MEDS ORDERED: PALI1TAB PO (16:15)
[2024-01-27] MEDS ORDERED: GUAN1TA PO (16:15)
[2024-01-27] MEDS ORDERED: ISOVUE-370 76% 100ML VIAL As Ordered ONE (17:35)
[2024-01-27] MEDS: ONDANSETRON 4MG 2ML VIAL IV ONE (17:37)
[2024-01-27 17:38] LABS: BASO # 0.1 10^3/uL (0.0-0.2); BASO % 0.7 % (0.0-1.0); EOS # 0.1 10^3/uL (0.0-0.5); EOS % 0.9 % (0.0-3.0); HEMOGLOBIN 11.2 g/dl (12.0-15.5); LYMPH % 29.9 % (24.0-44.0); MEAN CORPUSCULAR HEMOGLOBIN 24.3 pg (27.0-33.0); MEAN CORPUSCULAR VOLUME 76.1 fl (80.0-96.0); MONO % 7.2 % (2.0-8.0); NEUTROPHILS # 8.1 10^3/uL (1.5-8.5); NEUTROPHILS % 60.9 % (36.0-66.0); PLATELET COUNT, AUTOMATED 403 10^3/uL (150-450); WHITE BLOOD COUNT 13.3 10^3/uL (4.0-10.0)
[2024-01-27] MEDS: ACETAMINOPHEN 325 MG TAB PO ONE (17:39)
[2024-01-27 18:06] LABS: LIPASE 32 U/L (12-53)
[2024-01-27 18:08] LABS: ALBUMIN 3.5 G/DL (3.2-5.2); ALKALINE PHOSPHATASE 99 U/L (46-116); ALT/SGPT 14 U/L (7.0-40); AST/SGOT 12 U/L (<34); BILIRUBIN,DIRECT < 0.1 MG/DL (<0.4); BILIRUBIN,TOTAL < 0.2 MG/DL (0.3-1.2); TOTAL PROTEIN 6.5 G/DL (5.7-8.2)
[2024-01-27 18:14] LABS: HCG, SERUM QUALITATIVE NEGATIVE (NEGATIVE)
== END 2024-01-27 19:31 | disposition home or self-care (01) ==
LOC: M ED 16:07
DX: R10.31 Right lower quadrant pain (principal); K21.9 Gastro-esophageal reflux disease without esophagitis; F17.210 Nicotine dependence, cigarettes, uncomplicated; Z88.8 Allergy status to other drugs, medicaments and biological substances; Z79.810 Long term (current) use of selective estrogen receptor modulators (SERMs); Z79.899 Other long term (current) drug therapy
CPT/HCPCS: 74177; 80047; 80076; 81001; 83690; 84703; 85025; 96374; 99283; J2405; Q9967

== ENCOUNTER 2024-01-29 11:53 | Emergency (ER) | payer OTHER ==
[~2024-01-29] VITALS: Ht 154.9 cm; Wt 96.9 kg
[~2024-01-29 11:53] MED LIST changes: +GUAN1TA; +PALI1TAB
[2024-01-29 11:54] VITALS: BP 120/77; TEMP 97.6; O2SAT 97
== END 2024-01-29 13:10 | disposition left against medical advice (07) ==
LOC: M ED 11:53
DX: Z53.21 Procedure and treatment not carried out due to patient leaving prior to being seen by health care provider (principal)

== ENCOUNTER 2024-02-29 08:11 | Observation (INO) | payer OTHER ==
[~2024-02-29] VITALS: Ht 154.9 cm; Wt 96.0 kg
[2024-02-29] VITALS (7 sets, daily range): BP systolic 113–132; BP diastolic 71–88; TEMP 97.3–97.7; O2SAT 96–99
[~2024-02-29 08:11] MED LIST changes: -GUAN1TA; +GUAN1TA PO; -PALI1TAB; +PALI1TAB PO; +ceFAZolin SOD 1 GM in DEXTROSE 5% (D5W) ADV/MINI-BAG 50 ML IV ONE
[2024-02-29] MEDS ORDERED: SERT50TA29 PO (08:32)
[2024-02-29] MEDS ORDERED: ATOM18CA6 PO (08:32)
[2024-02-29] MEDS ORDERED: LR 1,000 ML IV SCH ×2 (08:35→15:20)
[2024-02-29 08:56] LABS: HEMATOCRIT 37.8 % (36.0-47.0); HEMOGLOBIN 11.9 g/dl (12.0-15.5); MEAN CORPUSCULAR HEMOGLOBIN 23.6 pg (27.0-33.0); MEAN CORPUSCULAR HGB CONC 31.5 g/dl (32.0-36.5); MEAN CORPUSCULAR VOLUME 74.9 fl (80.0-96.0); PLATELET COUNT, AUTOMATED 424 10^3/uL (150-450); RED BLOOD COUNT 5.05 10^6/uL (4.00-5.40); WHITE BLOOD COUNT 8.1 10^3/uL (4.0-10.0)
[2024-02-29] MEDS: ceFAZolin SOD 2 GM in IV 1 EA IV ONE (10:38)
[2024-02-29] MEDS ORDERED: KETOROLAC 60MG 2ML VIAL As Ordered ONE (10:45)
[2024-02-29] MEDS ORDERED: ONDANSETRON 4MG 2ML VIAL As Ordered ONE (10:45)
[2024-02-29] MEDS ORDERED: fentaNYL 100 MCG/2 ML INJECTION As Ordered ONE (10:45)
[2024-02-29] MEDS ORDERED: ROCURONIUM BROMIDE 50MG/5ML VIAL As Ordered ONE (10:45)
[2024-02-29] MEDS ORDERED: MIDAZOLAM INJ 2MG/2ML VIAL As Ordered ONE (10:45)
[2024-02-29] MEDS ORDERED: SUGAMMADEX SODIUM 500 MG/5 ML VIAL (BRIDION) As Ordered ONE (10:45)
[2024-02-29] MEDS ORDERED: ACETAMINOPHEN 1000MG 100ML IV BAG As Ordered ONE (10:45)
[2024-02-29] MEDS ORDERED: LIDOCAINE 2% 100MG/5ML SDV (FOR ANES.) As Ordered ONE (10:45)
[2024-02-29] MEDS ORDERED: propofoL 200 MG/20 ML VIAL As Ordered ONE (10:45)
[2024-02-29] MEDS ORDERED: HYDROmorphone HCL 2MG/ML 1ML VIAL As Ordered ONE (10:45)
[2024-02-29] MEDS ORDERED: fentaNYL 100 MCG/2 ML INJECTION IV PRN (13:05)
[2024-02-29] MEDS ORDERED: oxyCODONE 5MG TAB PO PRN (13:05)
[2024-02-29] MEDS ORDERED: MORPHINE 2 MG/ML 1ML VIAL IV PRN (13:05)
[2024-02-29] MEDS ORDERED: OXYC1TAB23 PO (13:35)
[2024-02-29] MEDS: ONDANSETRON 4MG 2ML VIAL IV PRN (13:54)
[2024-02-29] MEDS: METOCLOPRAMIDE INJ 10MG/2ML VIAL IV PRN (14:33)
[2024-02-29] MEDS ORDERED: PERCOCET 5MG/325MG TAB PO PRN ×2 (15:20)
[2024-02-29] MEDS ORDERED: ONDANSETRON 4MG 2ML VIAL IV PRN (15:20)
[2024-02-29] MEDS: KETOROLAC 30 MG/ML 1ML VIAL IV PRN (16:13)
[2024-02-29] MEDS ORDERED: NORCO, ANEXSIA 5/325MG TABLET (HYDROcodone/ACETAMINOPHEN) PO PRN (17:15)
[2024-02-29] MEDS: DOCUSATE SODIUM 100MG CAPSULE PO SCH (20:36)
[2024-03-01 00:25] VITALS: BP 126/77; TEMP 97.9; O2SAT 95
[2024-03-01 00:30] VITALS: BP 126/77; TEMP 97.9; O2SAT 95
[2024-03-01 04:30] VITALS: BP 124/80; TEMP 98.1; O2SAT 97
[2024-03-01] MEDS: LEVOTHYROXINE 25MCG TABLET (0.025MG) PO SCH (05:59)
[2024-03-01] MEDS ORDERED: COLA100C5 PO (08:25)
[2024-03-01] MEDS: PANTOPRAZOLE 40MG TAB (PROTONIX) PO SCH (08:28)
[2024-03-01] MEDS: SERTRALINE HCL 50 MG TAB PO SCH (08:28)
[2024-03-01] MEDS ORDERED: ATOMOXETINE HCL 40 MG CAP (STRATTERA) PO SCH (09:00)
== END 2024-03-01 08:30 | disposition home or self-care (01) ==
LOC: M SDC 08:11 → M RR INP 15:18 → M MSPAV 15:35
PROVIDERS: ADMIT Specialist; ATTEND Specialist
DX: N92.0 Excessive and frequent menstruation with regular cycle (principal); R10.2 Pelvic and perineal pain; Z79.899 Other long term (current) drug therapy; Z88.8 Allergy status to other drugs, medicaments and biological substances
CPT/HCPCS: 36415; 58571; 81025; 85027; 86850; 86900; 86901; 88307; 96374; 96376; J0131; J0665; J0690; J1100; J1171; J1885; J2250; J2405; J2765; J3010; S2900

== ENCOUNTER → 2024-12-18 | Outpatient (REF) | payer OTHER ==
[~2024-12-18] MED LIST changes: +ATOM18CA6 PO; +COLA100C5 PO; +OXYC1TAB23 PO; +SERT50TA29 PO; -ceFAZolin SOD 1 GM in DEXTROSE 5% (D5W) ADV/MINI-BAG 50 ML IV ONE
[2024-12-18 17:45] LABS: ALT/SGPT 13 U/L (7.0-40); AST/SGOT 24 U/L (<34); CALCIUM LEVEL 8.8 MG/DL (8.5-10.1); CARBON DIOXIDE LEVEL 25 MMOL/L (20-31); CHLORIDE LEVEL 105 MMOL/L (98-107); CHOLESTEROL LEVEL 175 MG/DL (<200); CHOLESTEROL RISK RATIO 3.90 (<5); CREATININE FOR GFR 0.67 MG/DL (0.55-1.30); GLOMERULAR FILTRATION RATE > 90.0 (>60); IRON (FE) 25 UG/DL (50-170); LDL CHOLESTEROL 86.2 MG/DL (<100); NON-HDL-C 130.2 MG/DL; PERCENT SATURATION 5.7 % (13.2-45.0); POTASSIUM SERUM 3.9 MMOL/L (3.5-5.1); SODIUM LEVEL 141 MMOL/L (136-145); TRIGLYCERIDES LEVEL 220 MG/DL (<150)
[2024-12-18 17:46] LABS: VITAMIN B12 LEVEL 718 PG/ML (211-911)
[2024-12-18 17:47] LABS: TOTAL 25(OH) VITAMIN D 27.6 NG/ML (20.0-100.0)
[2024-12-18 17:50] LABS: BASO # 0.1 10^3/uL (0.0-0.2); BASO % 1.1 % (0.0-1.0); EOS # 0.1 10^3/uL (0.0-0.5); EOS % 0.8 % (0.0-3.0); LYMPH # 3.7 10^3/uL (1.5-5.0); LYMPH % 44.6 % (24.0-44.0); MONO # 0.6 10^3/uL (0.0-0.8); MONO % 7.6 % (2.0-8.0); NEUTROPHILS # 3.8 10^3/uL (1.5-8.5); NEUTROPHILS % 45.7 % (36.0-66.0); PLATELET COUNT, AUTOMATED 368 10^3/uL (150-450)
[2024-12-18 18:28] LABS: ESTIMATED AVERAGE GLUCOSE 137.0 MG/DL (60-110)
== END ==
LOC: M LAB REF 11:41
PROVIDERS: ATTEND Nurse Practitioner Family
DX: D50.9 Iron deficiency anemia, unspecified (principal); Z98.84 Bariatric surgery status; E03.9 Hypothyroidism, unspecified; E55.9 Vitamin D deficiency, unspecified; R73.03 Prediabetes

== ENCOUNTER 2025-02-07 08:47 | Emergency (ER) | payer OTHER ==
[~2025-02-07] VITALS: Ht 154.9 cm; Wt 95.2 kg
[2025-02-07] MEDS ORDERED: FERR325T19 PO (08:55)
[2025-02-07 10:12] LABS: BASO # 0.1 10^3/uL (0.0-0.2); BASO % 0.7 % (0.0-1.0); EOS # 0.1 10^3/uL (0.0-0.5); EOS % 0.9 % (0.0-3.0); LYMPH # 2.5 10^3/uL (1.5-5.0); LYMPH % 37.1 % (24.0-44.0); MONO # 0.6 10^3/uL (0.0-0.8); MONO % 8.6 % (2.0-8.0); NEUTROPHILS # 3.5 10^3/uL (1.5-8.5); NEUTROPHILS % 52.4 % (36.0-66.0); PLATELET COUNT, AUTOMATED 354 10^3/uL (150-450)
[2025-02-07 10:38] LABS: CALCIUM LEVEL 9.1 MG/DL (8.5-10.1); CARBON DIOXIDE LEVEL 27 MMOL/L (20-31); CHLORIDE LEVEL 109 MMOL/L (98-107); CK-MB VALUE MASS 1.1 NG/ML (<3.6); CREATININE FOR GFR 0.67 MG/DL (0.55-1.30); GLOMERULAR FILTRATION RATE > 90.0 (>60); POTASSIUM SERUM 4.4 MMOL/L (3.5-5.1); SODIUM LEVEL 143 MMOL/L (136-145)
[2025-02-07] MEDS ORDERED: VITA200032 PO (10:41)
[2025-02-07] MEDS ORDERED: PANT40TA29 PO (10:41)
[2025-02-07 10:43] LABS: CPK CREATINE PHOSPHOKINASE 74 U/L (34-145); MB/CK RELATIVE INDEX 1.48 (< OR =4)
[2025-02-07] MEDS ORDERED: HOME MED LIST COMPLETE! XX SCH (10:45)
[2025-02-07] MEDS ORDERED: FLON1SPR NARES (11:58)
[2025-02-07 12:02] VITALS: O2SAT 100
[2025-02-07 12:10] VITALS: BP 121/74; TEMP 96.8
== END 2025-02-07 12:23 | disposition home or self-care (01) ==
LOC: M ED 08:47
DX: R07.89 Other chest pain (principal); B34.9 Viral infection, unspecified; E11.9 Type 2 diabetes mellitus without complications; E03.9 Hypothyroidism, unspecified; K21.9 Gastro-esophageal reflux disease without esophagitis; Z88.8 Allergy status to other drugs, medicaments and biological substances; Z79.899 Other long term (current) drug therapy; F17.200 Nicotine dependence, unspecified, uncomplicated; R00.0 Tachycardia, unspecified

== ENCOUNTER → 2025-04-06 | Outpatient (REF) | payer OTHER ==
[~2025-04-06] MED LIST changes: +FERR325T19 PO; +FLON1SPR NARES; +PANT40TA29 PO; +VITA200032 PO
[2025-04-06 17:09] LABS: ALT/SGPT 14 U/L (7.0-40); AST/SGOT 19 U/L (<34); CALCIUM LEVEL 9.0 MG/DL (8.5-10.1); CARBON DIOXIDE LEVEL 29 MMOL/L (20-31); CHLORIDE LEVEL 106 MMOL/L (98-107); CHOLESTEROL LEVEL 167 MG/DL (<200); CHOLESTEROL RISK RATIO 3.40 (<5); CREATININE FOR GFR 0.64 MG/DL (0.55-1.30); GLOMERULAR FILTRATION RATE > 90.0 (>60); LDL CHOLESTEROL 47.0 MG/DL (<100); MAGNESIUM LEVEL 1.9 MG/DL (1.8-2.4); NON-HDL-C 118.0 MG/DL; POTASSIUM SERUM 4.0 MMOL/L (3.5-5.1); SODIUM LEVEL 141 MMOL/L (136-145); TRIGLYCERIDES LEVEL 355 MG/DL (<150)
[2025-04-06 17:17] LABS: ESTIMATED AVERAGE GLUCOSE 126.0 MG/DL (60-110)
== END ==
LOC: M LAB REF 16:29
PROVIDERS: ATTEND Nurse Practitioner Family
DX: R73.03 Prediabetes (principal); I10 Essential (primary) hypertension; Z82.41 Family history of sudden cardiac death; R07.9 Chest pain, unspecified